=== PATIENT | female | born 1950 | race Two or more races ===

== ENCOUNTER 2021-09-23 02:55 | Emergency (ER) | payer OTHER ==
[~2021-09-23] VITALS: Ht 154.9 cm; Wt 99.8 kg
[~2021-09-23 02:55] MED LIST: AML5T PO; NOR10T PO
[2021-09-23 03:47] LABS: Basophils # (auto) 0.1 10 ^3/uL (0-0.2); Eosinophils # (auto) 0.4 10 ^3/uL (0-0.8); Eosinophils % (auto) 3.8 % (0.0-7.0); Hematocrit 44.7 % (36.0-46.0); Hemoglobin 15.5 g/dL (12.2-16.2); Lymphocytes # (auto) 3.7 10 ^3/uL (0.4-5.4); Lymphocytes % (auto) 33.4 % (10.0-50.0); Mean Corpuscular Hemoglobin 30.8 pg (28.0-32.0); Mean Corpuscular Hgb Conc. 34.7 g/dL (32.0-36.0); Mean Corpuscular Volume 88.5 fL (80.0-100.0); Monocytes # (auto) 0.6 10 ^3/uL (0-1.3); Monocytes % (auto) 5.6 % (0.0-12.0); Neutrophils # (auto) 6.2 10 ^3/uL (1.6-8.6); Neutrophils % (auto) 56.2 % (37.0-80.0); Nucleated Red Blood Cells % 0.1 %; Red Blood Cells 5.05 10^6/uL (4.0-5.20); Red Cell Distribution Width 13.3 % (11.8-14.3)
[2021-09-23 04:17] LABS: Alanine Aminotransferase 28 U/L (13-56); Albumin 3.3 g/dL (3.4-5.0); Anion Gap 6 (5-15); Aspartate Aminotransferase 20 U/L (15-37); BUN/Creatinine Ratio 13.8; Blood Urea Nitrogen 9 mg/dL (7-18); Calcium 8.9 mg/dL (8.5-10.1); Carbon Dioxide 21 mmol/L (21-32); Chloride 113 mmol/L (98-107); GFR African American 115 mL/min; GFR Non-African American 95 mL/min; Glucose 99 mg/dL (74-106); Potassium 4.4 mmol/L (3.5-5.1); Sodium 140 mmol/L (136-145)
[2021-09-23 04:19] LABS: Alkaline Phosphatase 87 U/L (45-117); Bilirubin, Total 0.2 mg/dL (0.2-1.0)
[2021-09-23] MEDS ORDERED: IBUPROFEN 600 MG TAB PO ONE (05:00)
[2021-09-23] MEDS ORDERED: diazePAM 5 MG TAB PO ONE (05:00)
[2021-09-23] MEDS ORDERED: HYDROcodone-ACET 10/325MG TAB PO ONE (05:00)
[2021-09-23] MEDS ORDERED: IBUP600T27 PO (05:32)
[2021-09-23] MEDS ORDERED: DIAZ5TAB PO (05:32)
[2021-09-23] MEDS ORDERED: HYDROmorphone HCL 2 MG/ML VL IM ONE (06:15)
[2021-09-23 07:36] VITALS: BP 123/72
== END 2021-09-23 05:27 | disposition home or self-care (01) ==
LOC: EDBD 02:55 → ER 02:55
DX: S16.1XXA Strain of muscle, fascia and tendon at neck level, initial encounter (principal); J45.909 Unspecified asthma, uncomplicated; E78.5 Hyperlipidemia, unspecified; I10 Essential (primary) hypertension; Z90.49 Acquired absence of other specified parts of digestive tract; Z90.710 Acquired absence of both cervix and uterus; Z86.73 Personal history of transient ischemic attack (TIA), and cerebral infarction without residual deficits; Z88.2 Allergy status to sulfonamides; Z88.6 Allergy status to analgesic agent; Z88.8 Allergy status to other drugs, medicaments and biological substances; X58.XXXA Exposure to other specified factors, initial encounter; Y93.89 Activity, other specified; Y92.89 Other specified places as the place of occurrence of the external cause; Y99.8 Other external cause status
CPT/HCPCS: 36415; 80053; 84484; 85025; 93005; 96372; 99285; J1170

== ENCOUNTER 2024-12-09 12:15 | Emergency (ER) | payer OTHER ==
[~2024-12-09] VITALS: Ht 162.6 cm; Wt 91.0 kg
[~2024-12-09 12:15] MED LIST changes: +DIAZ-681 PO; +IBUP-1454 PO
--- NOTE | 2024-12-09 13:39 | ED.PDOC ---
History of Present Illness HPI Comments 74-year-old female brought in by EMS presents with a chief complaint of chronic body pain. Patient has a speech disturbance from a previous CVA that she had per . of patient reports that patient has been having chronic body pain that she has yet to address with a doctor. Patient does not see a doctor due to her immobility issues per . Patient subsequently does not take any medications for any of her conditions. PMHx: CVA, HTN, Anxiety, Arthritis, Asthma, HLD PSHx: Cholecystectomy, Hysterectomy HPI: Poor Historian. REVIEW OF SYSTEMS: CONSTITUTIONAL: Denies acute: fever, diaphoresis, chills, HEAD: Denies acute: headache, photophobia Eyes: Denies acute: Double vision, vision loss, eye pain, eye discharge. EARS: Denies acute: tinnitus, hearing loss, ear discharge, ear pain, THROAT: Denies acute: sore throat, swelling, difficulty swallowing , pain with swallowing, change in voice. NECK: Denies acute: neck pain, neck swelling, stiff neck. HEART: Denies acute : chest pain, palpitations, LUNGS: Denies acute: SOB, wheezing, cough, hemoptysis ABDOMEN: Denies acute: , Nausea, Vomiting, diarrhea, melena , hematemesis, hematochezia SKIN: Denies acute: rash, redness, lesions, itchiness. EXTREMITIES: Denies acute: calf pain, numbness, tingling, weakness, denies pain in extremity. Neuro: Denies acute: focal neurological deficit, motor or sensory focal neurological deficit, tremors, seizure like activity, confusion, dizziness, change in mental status, loss of bowel or bladder function, cauda equina like symptoms. : Denies acute: dysuria, hematuria, flank pain, increase in urinary frequency. PSYCH: Denies acute: hallucination, suicidal ideation, homicidal ideation. FEMALE: Denies acute: abnormal vaginal bleeding, foul odor, unusual discharge. PHYSICAL EXAM: General: ---[id number]-ty-[id number]-----acute distress, awake and alert. Head: normocephalic, atraumatic. Neck: supple, trachea is midline, no swelling. Throat: Normal phonation. Eyes:, no erythema, no purulent discharge, no proptosis, no icterus. Heart: regular rate, regular rhythm, no significant murmur appreciated. Lungs: no apparent respiratory distress, Able to speak in full sentences. No wheezing, no rhonchi, no crackles. No stridors Clear to auscultation bilaterally. Abdomen: Generalized tender to palpation, non distended, soft, no guarding, no rebound, + bowel sounds. Obese Neuro: Awake, Alert, oriented to name, self, situation, follows commands GCS=15. Speech is impaired at baseline from a previous stroke Skin: no petechia, no purpura, no cyanosis, non-pale, not jaundice. Lower extremities: --no - Pitting edema no deformity, no focal swelling, no calf TTP. Makes eye contact. Face: no apparent facial droop. No nuchal rigidity, Kernig's sign, Brudzinski's sign, no meningeal signs. ED COURSE: Chief Complaint: Back Pain Time Seen by MD: 13:20 Primary Care Provider: UNK Reviewed Notes: Medications, Allergies Allergies: Coded Allergies: Sulfa Drugs (Verified Allergy, Intermediate, HIVES, FACIAL SWELLING, 01/31/11) Cefuroxime (Verified Allergy, Unknown, 07/11/14) Hydrochlorothiazide w/Triamterene (Verified Allergy, Unknown, 07/11/14) Nortriptyline (Verified Allergy, Unknown, 07/11/14) Omeprazole (Verified Allergy, Unknown, 07/11/14) Salmeterol (Verified Allergy, Unknown, 07/11/14) Vitamin D (Verified Allergy, Unknown, 07/11/14) Uncoded Allergies: CO-TRIMOXAZOLE (Allergy, Unknown, 07/11/14) Home Meds Active Scripts Ibuprofen (Ibuprofen) 600 Mg Tab, 600 MG PO Q8HPRN PRN, #20 MG 0 Refills Prov:CHILO HYLTON MD 09/23/21 Diazepam (Valium) 5 Mg Tab, 2 TAB PO BID, #20 TAB Prov:CHILO HYLTON MD 09/23/21 Reported Medications Amlodipine Besylate (NORVASC TABLET) 5 Mg Tb, 2.5 TAB PO DAILY, #30 TAB 5 Refills 07/11/14 Hydrocodone-Acetaminophen ([place] 10/325MG) 1 Tab Tb, 10-325 MG PO BIDP PRN, #60 MG 01/31/11 Information Source: Patient, Spouse Mode of Arrival: EMS Past Medical History PAST MEDICAL HISTORY: Anxiety, Arthritis, Asthma, CVA, High Lipids, HTN Surgical History: Cholecystectomy, Hysterectomy DRAFTER (CAD) ELECTRICAL History: No Pertinent DRAFTER (CAD) ELECTRICAL History Family History Family History: Unknown Social History Smoker: Non-Smoker Alcohol: Denies ETOH Use Drugs: Denies Drug Use Lives In: Home Was a procedure done? Was a procedure done?: No Differential Dx Considerations may include: As far as low back pain: DDX included but not limited to Cauda Equina syndrome, lumbar radiculopathy, arthritis, disk herniation, sciatica, muscle strain, e pidural abscess, transverse myelitis. Cord compression, spinal foraminal stenosis, spinal fractures, spondylosis, central canal stenosis, trauma, muscle sprain/strain, aneurysm/dissection, kidney stones, shingles, arthritis, [place], neoplasm. As far as abdominal pain: DDX include Diverticulitis, colitis, gastroenteritis, acute abdomen, SBO, enteritis, constipation, volvulus, appendicitis, Gallbladder disease, choledocolithiasis, ascending cholangitis, pancreatitis, intraAbdominal mass/neoplasm, hepatitis, UTI, pylonephritis, kidney stone, aneurysm, dissection, Inflammatory bowel disease, gastroparesis, ischemic bowel, X-Ray, Labs, Meds, VS Vital Signs Date Time Temp Pulse Resp B/P (MAP) Pulse Ox O2 Delivery O2 Flow Rate FiO2 12/09/24 23:40 97.5 73 16 130/83 (99) 94 97.5 12/09/24 22:00 83 14 129/78 (95) 9 12/09/24 20:00 83 12/09/24 19:28 98.3 83 16 123/98 (106) 95 98.3 12/09/24 19:28 83 16 95 Room Air* 0 21 12/09/24 18:52 97.8 84 20 142/89 (106) 96 97.8 12/09/24 18:07 98.4 87 20 143/71 (95) 93 98.4 12/09/24 12:34 98.4 92 18 168/82 (110) 96 98.4 Lab Test 12/09/24 14:30 12/09/24 13:38 Range/Units Troponin I High Sensitivity < 3 L < 3 L </=34 ng/L White Blood Count 11.6 H 4.4-10.8 10^3/uL Red Blood Count 5.46 H 4.0-5.20 10^6/uL Hemoglobin 16.2 12.2-16.2 g/dL Hematocrit 47.3 H 36.0-46.0 % Mean Corpuscular Volume 86.5 80.0-100.0 fL Mean Corpuscular Hemoglobin 29.7 28.0-32.0 pg Mean Corpuscular Hemoglobin Concent 34.3 32.0-36.0 g/dL Red Cell Distribution Width 13.7 11.8-14.3 % Platelet Count 269 140-450 10^3/uL Mean Platelet Volume 7.9 6.9-10.8 fL Neutrophils (%) (Auto) 64.1 37.0-80.0 % Lymphocytes (%) (Auto) 27.2 10.0-50.0 % Monocytes (%) (Auto) 5.7 0.0-12.0 % Eosinophils (%) (Auto) 2.6 0.0-7.0 % Basophils (%) (Auto) 0.4 0.0-2.0 % Neutrophils # (Auto) 7.5 1.6-8.6 10 ^3/uL Lymphocytes # (Auto) 3.2 0.4-5.4 10 ^3/uL Monocytes # (Auto) 0.7 0-1.3 10 ^3/uL Eosinophils # (Auto) 0.3 0-0.8 10 ^3/uL Basophils # (Auto) 0 0-0.2 10 ^3/uL Nucleated Red Blood Cells 0.1 % Sodium Level 144 136-145 mmol/L Potassium Level 3.6 3.5-5.1 mmol/L Chloride Level 111 H 98-107 mmol/L Carbon Dioxide Level 20 20-31 mmol/L Anion Gap 13 5-15 Blood Urea Nitrogen 8 L 9-23 mg/dL Creatinine 0.61 0.550-1.02 mg/dL Glomerular Filtration Rate Calc 93 >90 mL/min BUN/Creatinine Ratio 13.1 10.0-20.0 Serum Glucose 102 74-106 mg/dL Lactic Acid Level 1.7 0.4-2.0 mmol/L Calcium Level 9.7 8.7-10.4 mg/dL Total Bilirubin 0.6 0.2-1.0 mg/dL Aspartate Amino Transferase (AST) 20 13-40 U/L Alanine Aminotransferase (ALT) 19 7-40 U/L Alkaline Phosphatase 161 H 46-116 U/L Total Protein 7.4 5.7-8.2 g/dL Albumin 4.5 3.2-4.8 g/dL Lipase 33 12-53 U/L Current Medications Medications (Trade) Dose Ordered Sig/Mima Route Start Time Stop Time Status Last Admin Acetaminophen/ Hydrocodone Bitart ([place] 5/325MG Tab) 1 tab ONCE ONCE PO 12/09/24 16:30 12/09/24 16:31 DC 12/09/24 16:30 Sodium Chloride 1,000 ml @ 1,000 mls/hr Q1H ONCE IV 12/09/24 20:45 12/09/24 21:44 DC 12/09/24 21:02 Ondansetron HCl (Zofran) 4 mg ONCE ONCE IV 12/09/24 20:45 12/09/24 20:46 DC 12/09/24 21:01 PATIENT: JANKI JASMINECT: [id number]: [id number] : 1950 LOC: ER ROOM / BED: / AGE / SEX: 74 / F ADM STATUS: REG ER SERVICE 1326 ORDERING PHYSICIAN: NILSON HERNANDEZ DO PROCEDURE(s): CXRP - CHEST PORTABLE REASON: abd pain, weakness, back pain ORDER NUMBER(s): [id number], ACCESSION NUMBER(s): [id number] EXAM: XY CHEST PORTABLE HISTORY: abd pain, weakness, back pain COMPARISON: None TECHNIQUE: Portable upright AP view of the chest was performed. FINDINGS: No pneumothorax, consolidative infiltrates, or pulmonary edema. The heart is not enlarged. The aortic arch is calcific. There are postoperative changes of TAVR. IMPRESSION: 1. No acute intrathoracic process. 2. Atherosclerotic vascular disease and postoperative changes of TAVR. ATED BY: NAHEED PIÑA MD DICTATED DATE/TIME: 12/09/24 1428 SIGNED BY: NAHEED PIÑA MD SIGNED DATE/TIME: 12/09/248 PATIENT: QUINCY JASMINE ACCT: [id number] UNIT: [id number] : 1950 LOC: ER ROOM / BED: / AGE / SEX: 74 / F ADM STATUS: REG ER SERVICE 1326 ORDERING PHYSICIAN: NILSON HERNANDEZ DO PROCEDURE(s): ABPL - CT AB PEL WO CON-NO ORAL OR IV REASON: abd pain, weakness, back pain ORDER NUMBER(s): [id number], ACCESSION NUMBER(s): [id number] Indication: abd pain, weakness, back pain Technique: CT axial images of the abdomen and pelvis are obtained without contrast. Coronal and sagittal reformats were obtained. Radiation Dose Information: CTDI volume is 25.02 mGy. Dose-length product is 1438.72 mGy*cm Comparison: None FINDINGS: There is limited interpretation of the abdomen and pelvis without administration of intravenous contrast. The lung bases demonstrate atelectasis. Aortic valvular prosthesis. Adrenal glands, spleen unremarkable in shape. Fatty infiltration of the pancreas. Hepatic steatosis. Cholecystectomy. Bilateral renal peripelvic cysts. No hydronephrosis. Small hiatal hernia. Stomach partially distended. Small bowel loops are normal in caliber. Large volume stool in the rectum. Moderate volume stool in the colon. No secondary signs for appendicitis. Abdominal aortic atherosclerotic disease. Bladder is partially distended. No free pelvic fluid. No inguinal lymphadenopathy. Moderate thoracolumbar degenerative disc disease and facet hypertrophic changes. Partially calcified left mesenteric lesion measuring 2 cm which may represent sequela of previous infection/ infarction. IMPRESSION: 1. Moderate thoracolumbar degenerative disc disease. 2. Atherosclerotic disease. 3. Cholecystectomy. 4. Hepatic steatosis. ATED BY: MALIHA BLUE MD DICTATED DATE/TIME: 12/09/241437 SIGNED BY: MALIHA BLUE MD SIGNED DATE/TIME: 12/09/241437 Time of 1ST Reevaluation: 13:50 Reevaluation 1ST: Unchanged Time of 2ND Reevaluation: 17:57 (The case was discussed with the [facility] admitting team (HPI, physical exam, labs and diagnostic tests that were available at the time of disposition, ED course, treatment plan) on the phone. They agreed to transfer the patient to their service by ALS for further evaluation and treatment. Dr. Viveros Authorization number is--[id number]. Urinalysis still pending) Patient Education/Counseling: Diagnosis, Treatment Family Education/Counseling: Diagnosis, Treatment Comments [facility] physician states that the patient has history of CVA supposed to be on Plavix, hypertension, anemia, bed ridden, vertigo, this our TRIA, fibromyalgia, history of cholecystectomy and TAVR Patient presented with the above HPI.--multiple complaints----workup was initiated. patient was found with the above mentioned diagnosis. the following medications were ordered: please refer to order lists of meds and tests obtained by myself Dr. Hernandez. Patient ED course and VS have been stabilized. Patient has been reassessed in the ED and remained in a stable condition. Pertinent incidental findings were discussed with the patient and/or family. Patient/family voices understanding and is agreeable with plan. Patient has been observed in the ED adequate length of time to insure improvement/stability. Escalation of care considered: Consideration of escalation to observation or admission Patient was transfer to [facility] per insurance requirement for further evaluation treatment of her presentation. All the reports of any imaging studies that were ordered by myself were reviewed by myself. Departure 1 Departure Time of Disposition: 15:45 Impression: Primary Impression: Abdominal pain Additional Impression: Back pain Disposition: 02 SHORT TERM HOSPITAL Admit to: [facility] Condition: Guarded Discharged With: Self Critical Care Note Critical Care Time?: No Heart Score Heart Score: Heart Score Response (Comments) Value History N/A 0 EKG N/A 0 Age N/A 0 Risk Factors N/A 0 Troponin N/A 0 Total 0 I personally scribed for NILSON HERNANDEZ DO ([email or web address]) on 12/09/24 at 13:39. Electronically submitted by Jose Harrison ([email or web address]). I personally scribed for NILSON HERNANDEZ DO ([email or web address]) on 12/09/24 at 16:03. Electronically submitted by Jose Harrison ([email or web address]). NILSON HERNANDEZ DO Dec 09, 2024 13:39
[2024-12-09 13:54] LABS: Basophils # (auto) 0 10 ^3/uL (0-0.2); Basophils % (auto) 0.4 % (0.0-2.0); Eosinophils # (auto) 0.3 10 ^3/uL (0-0.8); Eosinophils % (auto) 2.6 % (0.0-7.0); Hematocrit 47.3 % (36.0-46.0); Hemoglobin 16.2 g/dL (12.2-16.2); Lymphocytes # (auto) 3.2 10 ^3/uL (0.4-5.4); Lymphocytes % (auto) 27.2 % (10.0-50.0); Mean Corpuscular Hemoglobin 29.7 pg (28.0-32.0); Mean Corpuscular Hgb Conc. 34.3 g/dL (32.0-36.0); Mean Corpuscular Volume 86.5 fL (80.0-100.0); Monocytes # (auto) 0.7 10 ^3/uL (0-1.3); Monocytes % (auto) 5.7 % (0.0-12.0); Neutrophils # (auto) 7.5 10 ^3/uL (1.6-8.6); Neutrophils % (auto) 64.1 % (37.0-80.0); Nucleated Red Blood Cells % 0.1 %; Platelet Count (auto) 269 10^3/uL (140-450); Red Blood Cells 5.46 10^6/uL (4.0-5.20); Red Cell Distribution Width 13.7 % (11.8-14.3); White Blood Cell 11.6 10^3/uL (4.4-10.8)
[2024-12-09 14:07] LABS: Alanine Aminotransferase 19 U/L (7-40); Albumin 4.5 g/dL (3.2-4.8); Anion Gap 13 (5-15); Aspartate Aminotransferase 20 U/L (13-40); BUN/Creatinine Ratio 13.1 (10.0-20.0); Bilirubin, Total 0.6 mg/dL (0.2-1.0); Calcium 9.7 mg/dL (8.7-10.4); Carbon Dioxide 20 mmol/L (20-31); Glucose 102 mg/dL (74-106); Potassium 3.6 mmol/L (3.5-5.1); Sodium 144 mmol/L (136-145); Total Protein 7.4 g/dL (5.7-8.2)
[2024-12-09 14:09] LABS: Alkaline Phosphatase 161 U/L (46-116); Blood Urea Nitrogen 8 mg/dL (9-23); Chloride 111 mmol/L (98-107)
[2024-12-09 14:25] LABS: Lipase 33 U/L (12-53)
--- NOTE | 2024-12-09 14:31 | DVH ---
EXAM: XY CHEST PORTABLE HISTORY: abd pain, weakness, back pain COMPARISON: None TECHNIQUE: Portable upright AP view of the chest was performed. FINDINGS: No pneumothorax, consolidative infiltrates, or pulmonary edema. The heart is not enlarged. The aortic arch is calcific. There are postoperative changes of TAVR. IMPRESSION: 1. No acute intrathoracic process. 2. Atherosclerotic vascular disease and postoperative changes of TAVR.
--- NOTE | 2024-12-09 14:40 | DVH ---
Indication: abd pain, weakness, back pain Technique: CT axial images of the abdomen and pelvis are obtained without contrast. Coronal and sagit eloy reformats were obtained. Radiation Dose Information: CTDI volume is 25.02 mGy. Dose-length product is 1438.72 mGy*cm Comparison: None FINDINGS: There is limited interpretation of the abdomen and pelvis without administration of intravenous contr ast. The lung bases demonstrate atelectasis. Aortic valvular prosthesis. Adrenal glands, spleen unremarkable in shape. Fatty infiltration of the pancreas. Hepatic steatosis. Cholecystectomy. Bilateral renal peripelvic cysts. No hydronephrosis. Small hiatal hernia. Stomach partially distended. Small bowel loops are normal in caliber. Large volume stool in the rectum. Moderate volume stool in the colon. No secondary signs for appendic itis. Abdominal aortic atherosclerotic disease. Bladder is partially distended. No free pelvic fluid. No in guinal lymphadenopathy. Moderate thoracolumbar degenerative disc disease and facet hypertrophic changes. Partially calcified left mesenteric lesion measuring 2 cm which may represent sequela of previous inf ection/ infarction. IMPRESSION: 1. Moderate thoracolumbar degenerative disc disease. 2. Atherosclerotic disease. 3. Cholecystectomy. 4. Hepatic steatosis.
[2024-12-09] MEDS: HYDROcodone-ACET 5/325MG TAB PO ONE (16:30)
[2024-12-09 19:28] VITALS: PULSE 83; RESP 16; O2SAT 95
[2024-12-09] MEDS: ONDANSETRON HCL 4 MG/2 ML VIAL IV ONE (21:01)
[2024-12-09] MEDS: SODIUM CHLORIDE 0.9% 1,000 ML IV ONE (21:02)
[2024-12-09 23:40] VITALS: BP 130/83; PULSE 73; RESP 16; TEMP 97.5; O2SAT 94
== END 2024-12-09 23:25 | disposition short-term general hospital (02) ==
LOC: ER 12:15 → EDBD 12:15 → ER 23:25
DX: R10.84 Generalized abdominal pain (principal); M54.9 Dorsalgia, unspecified; F41.9 Anxiety disorder, unspecified; M19.90 Unspecified osteoarthritis, unspecified site; J45.909 Unspecified asthma, uncomplicated; E78.5 Hyperlipidemia, unspecified; I10 Essential (primary) hypertension; Z90.49 Acquired absence of other specified parts of digestive tract; Z90.710 Acquired absence of both cervix and uterus; Z88.1 Allergy status to other antibiotic agents; Z88.2 Allergy status to sulfonamides; Z86.73 Personal history of transient ischemic attack (TIA), and cerebral infarction without residual deficits; Z79.899 Other long term (current) drug therapy
CPT/HCPCS: 36415; 71045; 74176; 80053; 83605; 83690; 84484; 85025; 96361; 96374; 99285; J2405; J7030

== ENCOUNTER 2025-06-22 14:49 | Inpatient (IN) | payer OTHER ==
[~2025-06-22] VITALS: Ht 162.6 cm; Wt 94.5 kg
--- NOTE | 2025-06-22 14:58 | ED.PDOC ---
History of Present Illness HPI Comments 74-year-old female BIBA with prior medical history of CVA x5 years ago and a chief complaint of shortness a breath. EMS report on the patient having had shortness a breath for one week associated with progressively worsening cough and wheezing which prompted the patient called 911 today. Patient is nonambu latory and was satting at an 80% room air for which prompted EMS to give the patient a DuoNeb treatment. The patient is currently satting at 94% on 2 L O2. Denies any other symptoms at this time. Denies chills, fever, N/V/D, CP. No other associated symptoms, modifiers, recent injuries or sick contacts present at this time. Time Seen by MD: 14:20 Reviewed Notes: Nurses Notes, Arch Support Maker Notes, Medications, Allergies Allergies: Coded Allergies: Sulfa Drugs (Verified Allergy, Intermediate, HIVES, FACIAL SWELLING, 01/31/11) Cefuroxime (Verified Allergy, Unknown, 07/11/14) Hydrochlorothiazide w/Triamterene (Verified Allergy, Unknown, 07/11/14) Nortriptyline (Verified Allergy, Unknown, 07/11/14) Omeprazole (Verified Allergy, Unknown, 07/11/14) Salmeterol (Verified Allergy, Unknown, 07/11/14) Vitamin D (Verified Allergy, Unknown, 07/11/14) Uncoded Allergies: CO-TRIMOXAZOLE (Allergy, Unknown, 07/11/14) Home Meds Active Scripts Ibuprofen (Ibuprofen) 600 Mg Tab, 600 MG PO Q8HPRN PRN, #20 MG 0 Refills Prov:CHILO HYLTON MD 09/23/21 Diazepam (Valium) 5 Mg Tab, 2 TAB PO BID, #20 TAB Prov:CHILO HYLTON MD 09/23/21 Reported Medications Amlodipine Besylate (NORVASC TABLET) 5 Mg Tb, 2.5 TAB PO DAILY, #30 TAB 5 Refills 07/11/14 Hydrocodone-Acetaminophen ([place] 10/325MG) 1 Tab Tb, 10-325 MG PO BIDP PRN, #60 MG 01/31/11 Information Source: Patient, Emergency Med Personnel Mode of Arrival: EMS Severity: Moderate Timing: Days Duration: Since onset, Days Prehospital treatment: Oxygen (2 L of O2 and a DuoNeb treatment) Past Medical History PAST MEDICAL HISTORY: CVA (Five years ago) Past Medical History (Other): Currently bed-bound Surgical History: Denies all surgeries HISTORICAL INTERPRETER History: No Pertinent HISTORICAL INTERPRETER History Family History Family History: Reviewed,noncontributory to illness, Unknown Social History Smoker: Non-Smoker Alcohol: Denies ETOH Use Drugs: Denies Drug Use Lives In: Home Constitutional: denies: chills, diaphoresis, fatigue, fever, malaise, sweats, weakness, others EENTM: denies: blurred vision, double vision, ear bleeding, ear discharge, ear drainage, ear pain, ear ringing, eye pain, eye redness, hearing loss, mouth pain, mouth swelling, nasal discharge, nose bleeding, nose congestion, nose pain, photophobia, tearing, throat pain, throat swelling, voice changes, others Respiratory: reports: cough, SOB at rest, shortness of breath, wheezing; denies: hemoptysis, orthopnea, SOB with excertion, stridor, others Cardiovascular: denies: chest pain, dizzy spells, diaphoresis, Dyspnea on exertion, edema, irregular heart beat, left arm pain, lightheadedness, palpitations, PND, syncope, others Gastrointestinal: denies: abdomen distended, abdominal pain, blood streaked bowels, constipated, diarrhea, dysphagia, difficulty swallowing, hematemesis, melena, nausea, poor appetite, poor fluid intake, rectal bleeding, rectal pain, vomiting, others Genitourinary: denies: abnormal vagina bleeding, burning, dyspareunia, dysuria, flank pain, frequency, hematuria, incontinence, pain, , vagina discharge, urgency, others Neurological: denies: dizziness, fainting, headache, left sided numbness, left sided weakness, numbness, paresthesia, pre-existing deficit, right sided numbness, right sided weakness, seizure, speech problems, tingling, tremors, weakness, others Musculoskeletal: denies: back pain, gout, joint pain, joint swelling, muscle pain, muscle stiffness, neck pain, others Integumetry: denies: bruises, change in color, change in hair/nails, dryness, laceration, lesions, lumps, rash, wounds, others Allergic/Immunocompromised: denies: Difficulty Healing, Frequent Infections, Hives, Itching, others Hematologic/Lymphatic: denies: anemia, blood clots, easy bleeding, easy bruising, swollen glands, others Endocrine: denies: excessive hunger, excessive sweating, excessive thirst, excessive urination, flushing, intolerance to cold, intolerance to heat, unexplained weight gain, unexplained weight loss, others Psychiatric: denies: anxiety, bipolar disorder, depression, hopeless, panic disorder, schizophrenia, sleepless, suicidal, others All Other Systems: Reviewed and Negative Physical Exam General Appearance: Moderate Distress, Normal HEENT: Normal ENT Inspection, Pharynx Normal, TMs Normal Neck: Full Range of Motion, Non-Tender, Normal, Normal Inspection Respiratory: Chest Non-Tender, No Accessory Muscle Use, Rhonchi Cardiovascular: No Edema, No JVD, No Murmur, No Gallop, Normal Peripheral Pulses, Regular Rate/Rhythm Breast Exam: Deferred Gastrointestinal: No Organomegaly, Non Tender, No Pulsatile Mass, Normal Bowel Sounds, Soft Genitalia: Deferred Pelvic: Deferred Rectal: Deferred Extremities: No calf tenderness, Normal capillary refill, Normal inspection, Normal range of motion, Non-tender, No pedal edema Musculoskeletal : Apperance: Normal Neurologic: Alert, artificial stone applicator II-XII nml as Tested, No Motor Deficits, Normal Affect, Normal Mood, No Sensory Deficits Cerebellar Function: NOT DONE Reflexes: NOT DONE Skin: Dry, Normal Color, Warm Peripheral Pulses: 3+ Radial (R), 3+ Radial (L) Lymphatic: No Adenopathy Was a procedure done? Was a procedure done?: No Differential Dx Considerations may include: CHF Electrolyte imbalance X-Ray, Labs, Meds, VS Vital Signs Date Time Temp Pulse Resp B/P (MAP) Pulse Ox O2 Delivery O2 Flow Rate FiO2 06/22/25 15:44 26 95 Nasal Cannula* 2 28 06/22/25 15:40 102 24 98 Nasal Cannula* 2 28 06/22/25 15:40 98.5 102 24 165/85 (111) 94 98.5 06/22/25 14:49 97.7 88 22 148/75 94 97.7 Lab Test 06/22/25 16:23 06/22/25 15:32 Range/Units Troponin I High Sensitivity Pending 4 </=34 ng/L White Blood Count 9.7 4.4-10.8 10^3/uL Red Blood Count 5.22 H 4.0-5.20 10^6/uL Hemoglobin 15.7 12.2-16.2 g/dL Hematocrit 45.6 36.0-46.0 % Mean Corpuscular Volume 87.5 80.0-100.0 fL Mean Corpuscular Hemoglobin 30.1 28.0-32.0 pg Mean Corpuscular Hemoglobin Concent 34.4 32.0-36.0 g/dL Red Cell Distribution Width 13.4 11.8-14.3 % Platelet Count 246 140-450 10^3/uL Mean Platelet Volume 8.1 6.9-10.8 fL Neutrophils (%) (Auto) 52.9 37.0-80.0 % Lymphocytes (%) (Auto) 35.9 10.0-50.0 % Monocytes (%) (Auto) 8.1 0.0-12.0 % Eosinophils (%) (Auto) 2.5 0.0-7.0 % Basophils (%) (Auto) 0.6 0.0-2.0 % Neutrophils # (Auto) 5.1 1.6-8.6 10 ^3/uL Lymphocytes # (Auto) 3.5 0.4-5.4 10 ^3/uL Monocytes # (Auto) 0.8 0-1.3 10 ^3/uL Eosinophils # (Auto) 0.2 0-0.8 10 ^3/uL Basophils # (Auto) 0.1 0-0.2 10 ^3/uL Nucleated Red Blood Cells 0.1 % Sodium Level 142 136-145 mmol/L Potassium Level 3.1 L 3.5-5.1 mmol/L Chloride Level 108 H 98-107 mmol/L Carbon Dioxide Level 22 20-31 mmol/L Anion Gap 12 5-15 Blood Urea Nitrogen 6 L 9-23 mg/dL Creatinine 0.62 0.550-1.02 mg/dL Glomerular Filtration Rate Calc 92 >90 mL/min BUN/Creatinine Ratio 9.7 L 10.0-20.0 Serum Glucose 115 H 74-106 mg/dL Calcium Level 8.9 8.7-10.4 mg/dL Current Medications Medications (Trade) Dose Ordered Sig/Mima Route Start Time Stop Time Status Last Admin Methylprednisolone Sodium Succinate (Solu Medrol) 125 mg ONCE ONCE IV 06/22/25 15:30 06/22/25 15:31 DC 06/22/25 15:54 Albuterol (Ventolin Medneb) 5 mg ONCE ONCE NEB 06/22/25 15:30 06/22/25 15:31 DC 06/22/25 15:42 Ipratropium [place] (Atrovent Medneb) 0.5 mg ONCE ONCE NEB 06/22/25 15:30 06/22/25 15:31 DC 06/22/25 15:42 Patient alert. Placed on oxygen. Increased respiratory rate. Answering questions. Potassium is low. Was given potassium. Possible pneumonitis. Was given steroid. Was given breathing treatment. Chest x-ray reviewed does show CHF. Was given Lasix. Unstable for transfer. Explained to the patient. Continue monitoring. [place] approved inpatient admission [id number]. Time of 1ST Reevaluation: 14:53 Reevaluation 1ST: Unchanged Patient Education/Counseling: Diagnosis, Treatment, Prognosis Family Education/Counseling: No Family Present SEPSIS Sepsis Screen Physician Orders Chest Portable (06/22/25 15:19) Urinalysis (06/22/25 15:19) Troponin-I Hs (06/22/25 16:19) Troponin-I Hs (06/22/25 18:19) Potassium Chl 20meq/100ml (06/22/25 16:30) Ceftriaxone 1gm/50ml (Rocephin) (06/22/25 16:30) Azithromycin 500mg/250ml (Zithromax 500m (06/22/25 16:30) Vital Signs Date Time Temp Pulse Resp B/P (MAP) Pulse Ox O2 Delivery O2 Flow Rate FiO2 06/22/25 15:44 26 95 Nasal Cannula* 2 28 06/22/25 15:40 102 24 98 Nasal Cannula* 2 28 06/22/25 15:40 98.5 102 24 165/85 (111) 94 98.5 06/22/25 14:49 97.7 88 22 148/75 94 97.7 Laboratory Tests Test 06/22/25 15:32 White Blood Count 9.7 10^3/uL (4.4-10.8) Medications Medications Dose Ordered Sig/Mima Route Start Time Stop Time Status Last Admin Dose Admin Albuterol 5 mg ONCE ONCE NEB 06/22/25 15:30 06/22/25 15:31 DC 06/22/25 15:42 Ipratropium [place] 0.5 mg ONCE ONCE NEB 06/22/25 15:30 06/22/25 15:31 DC 06/22/25 15:42 Methylprednisolone Sodium Succinate 125 mg ONCE ONCE IV 06/22/25 15:30 06/22/25 15:31 DC 06/22/25 15:54 Departure 1 Departure Time of Disposition: 16:17 Impression: Primary Impression: Acute respiratory failure Qualified Codes: J96.01 - Acute respiratory failure with hypoxia Additional Impressions: Pneumonitis CHF (congestive heart failure) Qualified Codes: I50.43 - Acute on chronic combined systolic (congestive) and diastolic (congestive) heart failure Disposition: ADMITTED INPATIENT Admit to: Med Surg Condition: Guarded Critical Care Note Critical Care Time?: Yes (90 min-critical care time only) Stability Stability form required: No Heart Score Heart Score: Heart Score Response (Comments) Value History Slightly Suspicious 0 EKG Normal 0 Age >65 2 Risk Factors >3 or Hx ASHD 2 Troponin Normal limit 0 Total 4 I personally scribed for MOHINDER BLANTON MD ([email or web address]) on 06/22/25 at 14:58. Electronically submitted by Abraham Moreno ([email or web address]). I personally scribed for MOHINDER BLANTON MD ([email or web address]) on 06/22/25 at 14:58. Electronically submitted by Abraham Moreno ([email or web address]). MOHINDER BLANTON MD Jun 22, 2025 14:58
[2025-06-22 15:40] VITALS: PULSE 102; RESP 24; O2SAT 98
[2025-06-22] MEDS: ALBUTEROL SULF 2.5 MG/0.5ML(0.5%) NEB SOLN NEB ONE (15:42)
[2025-06-22] MEDS: IPRATROPIUM BROM 0.5 MG/2.5ML INH SOL NEB ONE (15:42)
--- NOTE | 2025-06-22 15:52 | DVH ---
CHEST RADIOGRAPH INDICATION: sob TECHNIQUE: Single frontal view of the chest was obtained COMPARISON: XY CHEST PORTABLE on DOS: 12/09/24, XR CHEST 1 VIEW on DOS: 02/13/24 FINDINGS: Lines and Tubes: None Lungs: No focal consolidation. Diffuse interstitial prominence. Hazy opacification of the right hemithorax which may be from overlying structures. Pleura: No effusion. No pneumothorax. Cardiomediastinal contours: Heart size is within normal limits [id number] atherosclerotic calcification and uncoiling of the aorta. Cardiac valvular replacement is noted. Bones: No acute osseous abnormality. IMPRESSION: Diffuse interstitial Prominence which are be from pulmonary vascular congestion senescent changes. No focal consolidation.
[2025-06-22 15:53] LABS: Hematocrit 45.6 % (36.0-46.0); Hemoglobin 15.7 g/dL (12.2-16.2); Mean Corpuscular Hemoglobin 30.1 pg (28.0-32.0); Mean Corpuscular Volume 87.5 fL (80.0-100.0); Nucleated Red Blood Cells % 0.1 %
[2025-06-22] MEDS: methylPREDNISolone SOD SUCC 125 MG/2 ML VL IV ONE (15:54)
[2025-06-22 16:06] LABS: Sodium 142 mmol/L (136-145)
[2025-06-22 16:07] LABS: Anion Gap 12 (5-15); Carbon Dioxide 22 mmol/L (20-31)
[2025-06-22 16:08] LABS: Calcium 8.9 mg/dL (8.7-10.4)
[2025-06-22 16:13] LABS: Chloride 108 mmol/L (98-107); Glucose 115 mg/dL (74-106); Potassium 3.1 mmol/L (3.5-5.1)
[2025-06-22 16:14] LABS: BUN/Creatinine Ratio 9.7 (10.0-20.0); Blood Urea Nitrogen 6 mg/dL (9-23)
[2025-06-22] MEDS: FUROSEMIDE 40 MG/4 ML VIAL IV ONE (18:40)
[2025-06-22] MEDS: POTASSIUM CHL 20MEQ/100ML 100 ML IV ONE (18:41)
[2025-06-22 20:12] LABS: Urine Protein, UAD Negative (Negative)
[2025-06-22] MEDS: AZITHROMYCIN 500MG/250ML 250 ML IV ONE (22:20)
--- NOTE | 2025-06-22 23:28 | ECG ---
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
[2025-06-22] MEDS ORDERED: ONDANSETRON HCL 4 MG/2 ML VIAL IV PRN (23:30)
[2025-06-23] VITALS (16 sets, daily range): BP systolic 97–148; BP diastolic 8–91; PULSE 68–150; RESP 16–22; TEMP 97.9–98.7; O2SAT 93–99
[2025-06-23] MEDS: ACETAMINOPHEN 325 MG TAB PO SCH (00:16)
[2025-06-23] MEDS: HYDROcodone-ACET 5/325MG TAB PO PRN (03:25)
[2025-06-23] MEDS: POTASSIUM EFFERVESENT TAB 25 MEQ PO ONE (03:42)
--- NOTE | 2025-06-23 05:11 | DVHHPRES ---
History of Present Illness Resident Creating Document: HENNA TINAJERO RESIDENT History of Present Illness Patient is a 74-year-old female with past medical history of CVA 5 years ago, hypertension, who came to the ED with chief complaints of shortness of breath, and dry cough since 1 week. Patient has shortness of breath has been progressively getting worse. Patient denies any fever chills, nausea, vomiting, chest pain. Patient does report having sick contacts as the also had flu-like symptoms. He also complains of lower back pain which is 10/10 in intensity. PMHx: CVA, hypertension PSHx: cholecystectomy, hysterectomy Family history: reviewed, noncontributory Social history: smoking, drinking, drug use Home medication: amlodipine, diazepam, Allergic history: sulfa drugs, ceftriaxone, nortriptyline, omeprazole, sa lmeterol, vitamin-D Patient seen at bedside. Patient is currently on 2 L oxygen, complains of shortness of breath and cough, generalized weakness. she also complains of lower back pain and stool and urinary incontinence. Patient's speech is slurred. Review of Systems Constitutional: No: Fever, Chills, Sweats, Weakness, Malaise, Other Eyes: No: Pain, Vision change, Conjunctivae inflammation, Eyelid inflammation, Other, Redness ENT: No: Ear pain, Ear discharge, Nose pain, Nose discharge, Nose congestion, Mouth pain, Mouth swelling, Throat pain, Throat swelling, Other Respiratory: Cough, Dry, Shortness of breath Cardiovascular: No: Chest Pain, Palpitations, Orthopnea, Paroxysmal Noc. Dyspnea, Edema, Lt Headedness, Other Gastrointestinal: No: Nausea, Vomiting, Abdominal Pain, Diarrhea, Constipation, Melena, Hematochezia, Other Genitourinary: No Dysuria, No Frequency, No Incontinence, No Hematuria, No Retention, No Other Musculoskeletal: No: other, neck pain, shoulder pain, arm pain, back pain, hand pain, leg pain, foot pain Skin: No: Rash, Lesions, Jaundice, Bruising, Other Neurological: No: Weakness, Numbness, Incoordination, Change in speech, Confusion, Seizures, Other Allergies: Coded Allergies: Sulfa Drugs (Verified Allergy, Intermediate, HIVES, FACIAL SWELLING, 01/31/11) Cefuroxime (Verified Allergy, Unknown, 07/11/14) Hydrochlorothiazide/Triamterene (Verified Allergy, Unknown, 07/11/14) Nortriptyline (Verified Allergy, Unknown, 07/11/14) Omeprazole (Verified Allergy, Unknown, 07/11/14) Salmeterol (Verified Allergy, Unknown, 07/11/14) Vitamin D (Verified Allergy, Unknown, 07/11/14) Uncoded Allergies: CO-TRIMOXAZOLE (Allergy, Unknown, 07/11/14) Medications Current Medications Medications Dose Ordered Sig/Mima Route Start Time Stop Time Status Last Admin Dose Admin Acetaminophen/ Hydrocodone Bitart 1 tab Q4HP PRN PO 06/22/25 23:30 06/23/25 03:25 1 TAB Ondansetron HCl 4 mg Q4HP PRN IV 06/22/25 23:30 Enoxaparin Sodium 40 mg DAILY SC 06/23/25 10:00 Acetaminophen 650 mg Q6HR PO 06/23/25 00:00 06/23/25 00:16 650 MG Albuterol 2.5 mg Q4HWA [facility] 06/23/25 06:00 Ipratropium [place] 0.5 mg Q4HWA [facility] 06/23/25 06:00 Exam Vital Signs Vital Signs Date Time Temp Pulse Resp B/P (MAP) Pulse Ox O2 Delivery O2 Flow Rate FiO2 06/23/25 04:08 98.3 88 20 148/89 95 98.3 06/23/25 03:28 Nasal Cannula* 2 28 Exam General: Patient alert and oriented in person, place and time. Patient following commands. HEENT: Normocephalic, atraumatic, moist mucous membranes Respiratory/pulmonary: Rhonchi heard on auscultation on right side Cardiovascular: Normal heart sounds S1 and S2 with no associated murmurs Abdomen: Abdomen nondistended, there is no pain to palpation in any of the abdominal quadrants, no palpable masses. Extremities: There is no peripheral edema present at the lower extremities. Peripheral Pulses: 3+ Radial (R). 3+ Radial (L). 3+ Dorsalis pedis (R). 3+ Dorsalis pedis(L) Skin: No rashes or pruritus, there is no sacral edema present at this time. Neurological: right-sided weakness, slurred speech Labs/Xrays Labs Test 06/23/25 03:58 06/22/25 19:45 06/22/25 18:33 06/22/25 15:32 Range/Units Urine Color Light-yellow Yellow Urine Clarity Clear Clear Urine pH 5.5 5.0-9.0 Urine Specific [place] 1.012 1.001-1.035 Urine Protein Negative Negative Urine Ketones Trace Negative Urine Blood Negative Negative /uL Urine Nitrite Negative Negative Urine Bilirubin Negative Negative Urine Urobilinogen Normal Negative mg/dL Urine Leukocyte Esterase Negative Negative /uL Urine RBC 1 0 - 4 /hpf Urine Microscopic WBC 1 0-5 /HPF Urine Squamous Epithelial Cells Few <5 /hpf Urine Bacteria None seen None Seen /hpf Urine Mucus Few None Seen Urine Glucose Normal Normal mg/dL Troponin I High Sensitivity 6 </=34 ng/L White Blood Count 9.7 4.4-10.8 10^3/uL Red Blood Count 5.22 H 4.0-5.20 10^6/uL Hemoglobin 15.7 12.2-16.2 g/dL Hematocrit 45.6 36.0-46.0 % Mean Corpuscular Volume 87.5 80.0-100.0 fL Mean Corpuscular Hemoglobin 30.1 28.0-32.0 pg Mean Corpuscular Hemoglobin Concent 34.4 32.0-36.0 g/dL Red Cell Distribution Width 13.4 11.8-14.3 % Platelet Count 246 140-450 10^3/uL Mean Platelet Volume 8.1 6.9-10.8 fL Neutrophils (%) (Auto) 52.9 37.0-80.0 % Lymphocytes (%) (Auto) 35.9 10.0-50.0 % Monocytes (%) (Auto) 8.1 0.0-12.0 % Eosinophils (%) (Auto) 2.5 0.0-7.0 % Basophils (%) (Auto) 0.6 0.0-2.0 % Neutrophils # (Auto) 5.1 1.6-8.6 10 ^3/uL Lymphocytes # (Auto) 3.5 0.4-5.4 10 ^3/uL Monocytes # (Auto) 0.8 0-1.3 10 ^3/uL Eosinophils # (Auto) 0.2 0-0.8 10 ^3/uL Basophils # (Auto) 0.1 0-0.2 10 ^3/uL Nucleated Red Blood Cells 0.1 % Sodium Level 142 136-145 mmol/L Potassium Level 3.1 L 3.5-5.1 mmol/L Chloride Level 108 H 98-107 mmol/L Carbon Dioxide Level 22 20-31 mmol/L Anion Gap 12 5-15 Blood Urea Nitrogen 6 L 9-23 mg/dL Creatinine 0.62 0.550-1.02 mg/dL Glomerular Filtration Rate Calc 92 >90 mL/min BUN/Creatinine Ratio 9.7 L 10.0-20.0 Serum Glucose 115 H 74-106 mg/dL Calcium Level 8.9 8.7-10.4 mg/dL SEPSIS Sepsis Screen Date sepsis recognized/suspect: Jun 22, 2025 Time Sepsis recognized/suspect: 1939 Recent Procedure: No On Antibiotic Therapy: No Respiratory Rate >20: No Heart Rate >90: Yes Temp<36 C (96.8 F) or >38.3 C: No SBP <90 or MAP <65 mmHG: No New Acute Mental Status Change: No Is the patient on CPAP, BIPAP,: No Physician Orders Admit (06/22/25 23:25) Hydrocodone-Acet 5/325mg Tab ([place] 5/32 (06/22/25 23:30) Ondansetron Hcl (Zofran) (06/22/25 23:30) Enoxaparin Sodium (Lovenox) (06/23/25 10:00) Complete Blood Count (06/23/25 04:00) Comprehensive Metabolic Panel (06/23/25 04:00) Cardiac Diet-2gna,Lofat,Lochol (06/23/25 Breakfast) Condition: Serious (06/22/25 23:25) Acetaminophen Tablet (Tylenol Tablet) (06/23/25 00:00) Bedrest With Bathroom Privileg (06/22/25:25) Oxygen By Nasal Cannula (06/22/25:25) Stat Ekg For Chest Pain (06/22/25:25) Notify Md Of Changes From Base (06/22/25:) Composite Worker For 24 Hours (06/22/25 23:25) Emergency Dysrhythmia Protocol (06/22/25 23:25) Rhythm Strips Once Every Shift (06/22/25 23:25) Covid19 Antigen Kaylee (06/23/25 ) Rapid Influenza A&B (06/23/25 03:31) Magnesium (06/23/25 03:31) Mrsa Screen (06/23/25 03:31) Albuterol Medneb (Ventolin Medneb) (06/23/25 06:00) Ipratropium Medneb (Atrovent Medneb) (06/23/25 06:00) B-Type Natriuretic Peptide (06/23/25 04:55) Azithromycin Tablet (Zithromax Tablet) (06/23/25 10:00) Ceftriaxone 2gm/50ml (Rocephin 2gm/50ml) (06/23/25 10:00) Vital Signs Date Time Temp Pulse Resp B/P (MAP) Pulse Ox O2 Delivery O2 Flow Rate FiO2 06/23/25 04:08 98.3 88 20 148/89 95 98.3 06/23/25 03:31 98.3 88 20 148/89 (108) 95 98.3 06/23/25 03:28 88 20 95 Nasal Cannula* 2 28 06/23/25 03:00 98.3 87 20 148/89 (108) 94 98.3 06/23/25 02:00 86 15 128/90 (103) 94 06/23/25 01:30 97.8 06/23/25 01:00 86 21 115/72 (86) 95 06/23/25 00:16 98.0 06/23/25 00:00 87 16 127/77 (94) 94 06/22/25 23:20 91 06/22/25 22:00 92 23 128/88 (101) 94 Medications Medications Dose Ordered Sig/Mima Route Start Time Stop Time Status Last Admin Dose Admin Acetaminophen 650 mg Q6HR PO 06/23/25 00:00 06/23/25 00:16 650 MG Acetaminophen/ Hydrocodone Bitart 1 tab Q4HP PRN PO 06/22/25 23:30 06/23/25 03:25 1 TAB Potassium Bicarbonate 25 meq ONCE ONCE PO 06/23/25 03:45 06/23/25 03:46 DC 06/23/25 03:42 25 MEQ Assessment/Plan Assessment/Plan Acute hypoxic respiratory failure due to pneumonia Pneumonia due to Gram-positive/Gram-negative bacteria Questionable heart failure - chest x-ray showed Diffuse interstitial Prominence which are be from pulmonary vascular congestion senescent changes. No focal consolidation. 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 Flores , patient and nurse Plan discussed with: Patient My Orders Orders - HENNA TINAJERO RESIDENT Procedure Category Date Status Time Admit ADMIT 06/22/25 Transmitted 23:25 Hydrocodone-Acet PHA 06/22/25 In Process 5/325mg Tab ([place] 23:30 Ondansetron Hcl PHA 06/22/25 In Process (Zofran) 23:30 Enoxaparin Sodium PHA 06/23/25 In Process (Lovenox) 10:00 Complete Blood Count LAB 06/23/25 Logged 04:00 Comprehensive LAB 06/23/25 Logged Metabolic Panel 04:00 Cardiac DIET 06/23/25 Transmitted Diet-2gna,Lofat,Lochol Breakfast Condition: Serious [place] 06/22/25 In Process 23:25 Acetaminophen Tablet PHA 06/23/25 In Process (Tylenol Tablet) 00:00 Bedrest With Bathroom [facility] 06/22/25 In Process Privileg 23:25 Oxygen By Nasal RT 06/22/25 Transmitted Cannula 23:25 Stat Ekg For Chest [facility] 06/22/25 In Process Pain 23:25 Notify Md Of Changes [facility] 06/22/25 In Process From Base 23:25 Composite Worker For [facility] 06/22/25 In Process 24 Hours 23:25 Emergency Dysrhythmia [facility] 06/22/25 In Process Protocol 23:25 Rhythm Strips Once [facility] 06/22/25 In Process Every Shift 23:25 Covid19 Antigen Kaylee LAB 06/23/25 In Process Rapid Influenza A&B LAB 06/23/25 In Process 03:31 Magnesium LAB 06/23/25 Logged 03:31 Mrsa Screen ISABEL 06/23/25 In Process 03:31 Albuterol Medneb PHA 06/23/25 In Process (Ventolin Medneb) 06:00 Ipratropium Medneb PHA 06/23/25 In Process (Atrovent Medneb) 06:00 B-Type Natriuretic LAB 06/23/25 Logged Peptide 04:55 Azithromycin Tablet PHA 06/23/25 Logged (Zithromax Tablet) 10:00 Ceftriaxone 2gm/50ml PHA 06/23/25 Logged (Rocephin 2gm/50ml) 10:00 Visit Coding STANDARD RES Billing Provider: NIKKIE FLORES MD Date of Service if different f: Jun 22, 2025 Common Visit Codes: 16625-[id number] INP/OBS CARE (HIGH) Secondary Visit Codes: [id number]-[id number] CARE PLAN 30 MINUTES HENNA TINAJERO RESIDENT Jun 23, 2025 05:11
[2025-06-23 05:29] LABS: COVID19 ANTIGEN SOFIA FIA NEGATIVE (NEGATIVE)
[2025-06-23] MEDS: IPRATROPIUM BROM 0.5 MG/2.5ML INH SOL NEB SCH (06:50)
[2025-06-23] MEDS: ALBUTEROL SULF 2.5 MG/0.5ML(0.5%) NEB SOLN NEB SCH (06:51)
[2025-06-23] MEDS: ENOXAPARIN SOD 40 MG/0.4 ML SYRINGE SC SCH (09:11)
[2025-06-23 09:31] LABS: Hematocrit 44.5 % (36.0-46.0); Hemoglobin 15.2 g/dL (12.2-16.2); Mean Corpuscular Hemoglobin 29.7 pg (28.0-32.0); Mean Corpuscular Volume 87.0 fL (80.0-100.0); Nucleated Red Blood Cells % 0.3 %
[2025-06-23 09:38] LABS: Alanine Aminotransferase 22 U/L (7-40); Albumin 4.4 g/dL (3.2-4.8); Anion Gap 10 (5-15); BUN/Creatinine Ratio 14.8 (10.0-20.0); Bilirubin, Total 0.4 mg/dL (0.2-1.0); Blood Urea Nitrogen 12 mg/dL (9-23); Calcium 9.6 mg/dL (8.7-10.4); Carbon Dioxide 23 mmol/L (20-31); Chloride 107 mmol/L (98-107); Potassium 4.0 mmol/L (3.5-5.1); Sodium 140 mmol/L (136-145); Total Protein 7.4 g/dL (5.7-8.2)
[2025-06-23 09:59] LABS: Alkaline Phosphatase 170 U/L (46-116); Glucose 137 mg/dL (74-106)
[2025-06-23] MEDS ORDERED: AZITHROMYCIN 250 MG TAB PO SCH (10:00)
--- NOTE | 2025-06-23 10:56 | DVHPN2 ---
Subjective 74-year-old female who was admitted for chest pain and shortness of breaths for 1 week associated with a cough Apparently she lives with her and he had flu-like symptoms also This morning she was complaining of shortness of breaths and chest pain and her heart rate was in the 140s, EKG shows AFib with RVR Apparently the patient takes Eliquis at home but she does not know what other medication she is on I called the phone number for the which is listed in the chart but there was no answer or the number is not correct Changes from previous H/P or p: Changes Eyes: No Pain, No Vision change, No Conjunctivae inflammation, No Eyelid inflammation, No Other, No Redness ENT: No Ear pain, No Ear discharge, No Nose pain, No Nose discharge, No Nose congestion, No Mouth pain, No Mouth swelling, No Throat pain, No Throat swelling, No Other Cardiovascular: No Chest Pain, No Palpitations, No Orthopnea, No Paroxysmal Noc. Dyspnea, No Edema, No Lt Headedness, No Other Respiratory: Cough, Dry, Shortness of breath Gastrointestinal: No Nausea, No Vomiting, No Abdominal Pain, No Diarrhea, No Constipation, No Melena, No Hematochezia, No Other Genitourinary: No Dysuria, No Frequency, No Incontinence, No Hematuria, No Retention, No Other Musculoskeletal: No other, No neck pain, No shoulder pain, No arm pain, No back pain, No hand pain, No leg pain, No foot pain Skin: No Rash, No Lesions, No Jaundice, No Bruising, No Other Objective Vitals Vital Signs Date Time Temp Pulse Resp B/P (MAP) Pulse Ox O2 Delivery O2 Flow Rate FiO2 06/23/25 08:58 98.7 88 22 132/79 (96) 96 98.7 06/23/25 03:28 Nasal Cannula* 2 28 Intake/Output Intake and Output 06/23/25 07:00 Intake Total 850 ml Balance 850 ml Intake Oral 450 ml IV Total 400 ml General Appearance: Alert, Oriented X3, moderate distress Lungs: Other (Bilateral rhonchi) Cardiovascular: Other (Irregularly irregular tachycardic heart rate 140) Abdomen: Normal bowel sounds, Soft, No tenderness Extremities: No edema Medications Current Medications Medications Dose Ordered Sig/Mima Route Start Time Stop Time Status Last Admin Dose Admin Acetaminophen/ Hydrocodone Bitart 1 tab Q4HP PRN PO 06/22/25 23:30 06/23/25 03:25 1 TAB Ondansetron HCl 4 mg Q4HP PRN IV 06/22/25 23:30 Enoxaparin Sodium 40 mg DAILY SC 06/23/25 10:00 06/23/25 09:11 40 MG Acetaminophen 650 mg Q6HR PO 06/23/25 00:00 06/23/25 05:46 650 MG Albuterol 2.5 mg Q4HWA [facility] 06/23/25 06:00 Ipratropium [place] 0.5 mg Q4HWA [facility] 06/23/25 06:00 Azithromycin 500 mg DAILY PO 06/23/25 10:00 Hold Ceftriaxone Sodium/Dextrose 50 ml @ 50 mls/hr DAILY IV 06/23/25 10:00 06/23/25 09:12 50 MLS/HR Laboratory Results Laboratory Tests 06/23/25 08:31 Chemistry Test 06/22/25 15:32 06/23/25 08:31 Calcium Level 8.9 mg/dL (8.7-10.4) 9.6 mg/dL (8.7-10.4) Albumin 4.4 g/dL (3.2-4.8) Magnesium Level 2.2 mg/dL (1.6-2.6) Total Protein 7.4 g/dL (5.7-8.2) Cardiac Markers Test 06/23/25 08:31 B-Type Natriuretic Peptide 91.84 pg/mL (0-100) LFT Test 06/23/25 08:31 Alanine Aminotransferase (ALT) 22 U/L (7-40) Alkaline Phosphatase 170 U/L (46-116) H Aspartate Amino Transferase (AST) 21 U/L (13-40) Total Bilirubin 0.4 mg/dL (0.2-1.0) Urinalysis Test 06/22/25 19:45 Urine Color Light-yellow (Yellow) Urine Clarity Clear (Clear) Urine pH 5.5 (5.0-9.0) Urine Specific [place] 1.012 (1.001-1.035) Urine Protein Negative (Negative) Urine Ketones Trace (Negative) Urine Blood Negative /uL (Negative) Urine Nitrite Negative (Negative) Urine Bilirubin Negative (Negative) Urine Urobilinogen Normal mg/dL (Negative) Urine Leukocyte Esterase Negative /uL (Negative) Urine RBC 1 /hpf (0 - 4) Urine Microscopic WBC 1 /HPF (0-5) Urine Squamous Epithelial Cells Few /hpf (<5) Urine Bacteria None seen /hpf (None Seen) Urine Mucus Few (None Seen) Urine Glucose Normal mg/dL (Normal) Assessment/Plan Assessment/Plan Acute hypoxic respiratory failure Atrial fibrillation with rapid ventricular response Possible congestive heart failure Possible underlying pneumonia Hypertension Old CVA Plan EKG Cardiology consult Troponin Echocardiogram Give metoprolol 25 mg twice a day Lovenox Get the home medications Called the but no answer IV antibiotics Rocephin and Zithromax Oxygen as needed Med neb treatments as needed Not stable for transfer Plan discussed with: Patient My Orders Orders - NANCY CRISTOBAL MD Procedure Category Date Status Time Transfer Orders XFER 06/23/25 Transmitted 10:42 Metoprolol Tartrate PHA 06/23/25 Logged Tablet (Lopressor Ta 11:00 Date of Service: Jun 23, 2025 Billing Provider: NANCY CRISTOBAL MD Common Visit Codes: [id number] INP/OBS CARE(HIGH) NANCY CRISTOBAL MD Jun 23, 2025 10:56
[2025-06-23] MEDS: METOPROLOL TARTRATE 25 MG TAB PO ONE (12:19)
[2025-06-23] MEDS: METOPROLOL TARTRATE 1MG/1ML-5ML VIAL IV ONE (12:22)
[2025-06-23] MEDS: ENOXAPARIN SOD 40 MG/0.4 ML SYRINGE SC ONE (12:30)
[2025-06-23] MEDS: AMIODARONE BOLUS KIT 100 ML IV ONE ×2 (12:47)
[2025-06-23] MEDS: SODIUM CHLORIDE 0.9% 250 ML IV ONE (13:00)
--- NOTE | 2025-06-23 13:54 | MEDREC ---
[facility] ASP Intervention Section I FOR[facility] ASP Intervention: Review courses of therapy (DUE TO PROLONG QTc > 500 PLEASE CONSIDER SWITCHING AZITHROMYCIN TO DOXYCYCLINE ) ANABELLA OLIVO PHARMACIST Jun 23, 2025 13:54
[2025-06-23] MEDS ORDERED: DOXYCYCLINE 100MG/100ML 100 ML IV SCH (14:00)
--- NOTE | 2025-06-23 14:43 | DVH ---
CHEST RADIOGRAPH REASON FOR EXAM: Shortness of breath COMPARISON: XY CHEST PORTABLE on DOS: 06/22/25, XY CHEST PORTABLE on DOS: 12/09/24, XR CHEST 1 VIEW on DOS: 02/13/24, XR CHEST 2 VIEWS on DOS: 11/13/20 TECHNIQUE: One view of the chest is provided FINDINGS: The cardiomediastinal silhouette is within normal limits for technique. There is aortic atherosclerosis. The patient is status post TAVR. There is new focal airspace disease in the lingula. There is no significant pleural effusion. No acute bony abnormality is identified. IMPRESSION: New focal airspace disease in the lingula that may represent atelectasis although pneumonia is not ruled out.
--- NOTE | 2025-06-23 15:41 | DVHINCON2 ---
Date Seen: Jun 23, [address] Cristina Reason for Consultation atrial fibrillation with rvr History of Present Illness Patient is a 74-year-old female who came in to the hospital with a chief complaint of worsening shortness of breath and cough. Patient has a history of stroke about 5-6 years ago and has difficulty speaking, speech is not clear history obtained from at bedside who reveals she was having worsening shortness of breath with the last 1 week for which brought to the hospital. Patient denied any chest pain. On arrival patient was seen to be slightly hypotensive, heart rate 80-100, normal white cell count. Initial 12 lead ECG showed sinus rhythm with a probable old inferior infarct, no acute ST or T-wave changes. Cardiology were consulted today because the patient went into atrial fibrillation with RVR. Past medical history: CVA 5-6 years ago, hypertension, chronic back pain Surgical history: Cholecystectomy, hysterectomy Social history patient is mostly bed-bound, no smoking alcohol or drug use Home medications: Patient is a transplant reported since she has not been able to go to the physician because of lack of gurney transport, they do not have medications but from reconciled medications patient has been prescribed lisinopril 20, clonidine 0.1, hydralazine 25 t.i.d. Past Medical History As per HPI Past Surgical History As per HPI Family History: FH: kidney disease Family history: Cardiovascular disease Family history: Diabetes mellitus Family history: Hypertension Heart disease Family History Not significant Social History As per HPI Allergies: Coded Allergies: Sulfa Drugs (Verified Allergy, Intermediate, HIVES, FACIAL SWELLING, 01/31/11) Cefuroxime (Verified Allergy, Unknown, 07/11/14) Hydrochlorothiazide/Triamterene (Verified Allergy, Unknown, 07/11/14) Nortriptyline (Verified Allergy, Unknown, 07/11/14) Omeprazole (Verified Allergy, Unknown, 07/11/14) Salmeterol (Verified Allergy, Unknown, 07/11/14) Vitamin D (Verified Allergy, Unknown, 07/11/14) Uncoded Allergies: CO-TRIMOXAZOLE (Allergy, Unknown, 07/11/14) Home Meds Active Scripts Ibuprofen (Ibuprofen) 600 Mg Tab, 600 MG PO Q8HPRN PRN, #20 MG 0 Refills Prov:CHILO HYLTON MD 09/23/21 Diazepam (Valium) 5 Mg Tab, 2 TAB PO BID, #20 TAB Prov:CHILO HYLTON MD 09/23/21 Reported Medications Amlodipine Besylate (NORVASC TABLET) 5 Mg Tb, 2.5 TAB PO DAILY, #30 TAB 5 Refills 07/11/14 Hydrocodone-Acetaminophen ([place] 10/325MG) 1 Tab Tb, 10-325 MG PO BIDP PRN, #60 MG 01/31/11 Current Medications Current Medications Medications (Trade) Dose Ordered Sig/Mima Route PRN Reason Start Time Stop Time Status Last Admin Acetaminophen/ Hydrocodone Bitart ([place] 5/325MG Tab) 1 tab Q4HP PRN PO MODERATE PAIN (4-6 PAIN SCALE) 06/22/25 23:30 06/23/25 03:25 Ondansetron HCl (Zofran) 4 mg Q4HP PRN IV NAUSEA / VOMITING 06/22/25 23:30 Enoxaparin Sodium (Lovenox) 40 mg DAILY SC 06/23/25 10:00 06/23/25 10:55 DC 06/23/25 09:11 Acetaminophen (Tylenol Tablet) 650 mg Q6HR PO 06/23/25 00:00 06/23/25 05:46 Albuterol (Ventolin Medneb) 2.5 mg Q4HWA [facility] 06/23/25 06:00 Ipratropium [place] (Atrovent Medneb) 0.5 mg Q4HWA [facility] 06/23/25 06:00 06/23/25 11:24 Azithromycin (Zithromax Tablet) 500 mg DAILY PO 06/23/25 10:00 06/23/25 14:00 DC Ceftriaxone Sodium/Dextrose 50 ml @ 50 mls/hr DAILY IV 06/23/25 10:00 06/23/25 09:12 Enoxaparin Sodium (Lovenox) 80 mg Q12HR SC 06/23/25 22:00 Metoprolol Tartrate (Lopressor Tablet) 25 mg BID PO 06/23/25 22:00 Amiodarone HCl 250 ml @ 16.66 mls/ hr Q15H1M IV 06/23/25 18:45 Doxycycline Hyclate 100 ml @ 50 mls/hr Q12H IV 06/23/25 14:00 Cancel Doxycycline Monohydrate (Vibramycin Tablet) 100 mg BID PO 06/23/25 22:00 Review of Systems Patient seen and examined at the bedside Speech slightly comprehensible, slight right-sided weakness, which is normal as per the Denied any chest pain Saturating more than 95% on 2 L oxygen Was seen to be in atrial fibrillation with a RVR following which 5 mg metoprolol IV was given, started on amiodarone bolus and drip Vital Signs Vital Signs Date Time Temp Pulse Resp B/P (MAP) Pulse Ox O2 Delivery O2 Flow Rate FiO2 06/23/25 12:30 98.7 150 18 108/8 (41) 97 98.7 06/23/25 11:28 Nasal Cannula* 3 32 Physical Exam Skin - Patients skin is warm and dry. HEENT - normocephalic, atraumatic, moist mucous membranes, no scleral icterus, no conjunctival pallor. Neck - full ROM, no LAD, no JVD Pulmonary - B/L mostly clear breath sounds without any overt rales cardiovascular - irregularly irregular S1,S2 heard. peripheral pulses normal radial 2+, pedal 2+. No extremity edema GI - soft, nontender abdomen. no hepatospleenomegaly. Bowel sounds normoactive Neurological - Patient is A/O X 3 . Right upper extremity strength 4/5, left upper extremity strength 5/5, speech defect because of history of stroke, no sensory deficiets. Labs/Diagnostic Data Labs Test 06/23/25 13:00 06/23/25 08:31 06/23/25 03:58 06/22/25 19:45 Range/Units Lactic Acid Level 1.5 0.4-2.0 mmol/L White Blood Count 9.5 4.4-10.8 10^3/uL Red Blood Count 5.11 4.0-5.20 10^6/uL Hemoglobin 15.2 12.2-16.2 g/dL Hematocrit 44.5 36.0-46.0 % Mean Corpuscular Volume 87.0 80.0-100.0 fL Mean Corpuscular Hemoglobin 29.7 28.0-32.0 pg Mean Corpuscular Hemoglobin Concent 34.1 32.0-36.0 g/dL Red Cell Distribution Width 13.6 11.8-14.3 % Platelet Count 305 140-450 10^3/uL Mean Platelet Volume 8.3 6.9-10.8 fL Neutrophils (%) (Auto) 73.0 37.0-80.0 % Lymphocytes (%) (Auto) 22.1 10.0-50.0 % Monocytes (%) (Auto) 4.7 0.0-12.0 % Eosinophils (%) (Auto) 0.0 0.0-7.0 % Basophils (%) (Auto) 0.2 0.0-2.0 % Neutrophils # (Auto) 7.0 1.6-8.6 10 ^3/uL Lymphocytes # (Auto) 2.1 0.4-5.4 10 ^3/uL Monocytes # (Auto) 0.4 0-1.3 10 ^3/uL Eosinophils # (Auto) 0 0-0.8 10 ^3/uL Basophils # (Auto) 0 0-0.2 10 ^3/uL Nucleated Red Blood Cells 0.3 % Sodium Level 140 136-145 mmol/L Potassium Level 4.0 3.5-5.1 mmol/L Chloride Level 107 98-107 mmol/L Carbon Dioxide Level 23 20-31 mmol/L Anion Gap 10 5-15 Blood Urea Nitrogen 12 9-23 mg/dL Creatinine 0.81 # 0.550-1.02 mg/dL Glomerular Filtration Rate Calc 75 >90 mL/min BUN/Creatinine Ratio 14.8 10.0-20.0 Serum Glucose 137 H 74-106 mg/dL Calcium Level 9.6 8.7-10.4 mg/dL Magnesium Level 2.2 1.6-2.6 mg/dL Total Bilirubin 0.4 0.2-1.0 mg/dL Aspartate Amino Transferase (AST) 21 13-40 U/L Alanine Aminotransferase (ALT) 22 7-40 U/L Alkaline Phosphatase 170 H 46-116 U/L Troponin I High Sensitivity 3 L </=34 ng/L B-Type Natriuretic Peptide 91.84 0-100 pg/mL Total Protein 7.4 5.7-8.2 g/dL Albumin 4.4 3.2-4.8 g/dL Thyroid Stimulating Hormone (TSH) 1.19 0.55-4.78 uIU/mL Influenza Type A Antigen Negative Negative Influenza Type B Antigen Negative Negative SARS-CoV-2 Antigen (Rapid) Negative NEGATIVE Urine Color Light-yellow Yellow Urine Clarity Clear Clear Urine pH 5.5 5.0-9.0 Urine Specific [place] 1.012 1.001-1.035 Urine Protein Negative Negative Urine Ketones Trace Negative Urine Blood Negative Negative /uL Urine Nitrite Negative Negative Urine Bilirubin Negative Negative Urine Urobilinogen Normal Negative mg/dL Urine Leukocyte Esterase Negative Negative /uL Urine RBC 1 0 - 4 /hpf Urine Microscopic WBC 1 0-5 /HPF Urine Squamous Epithelial Cells Few <5 /hpf Urine Bacteria None seen None Seen /hpf Urine Mucus Few None Seen Urine Glucose Normal Normal mg/dL Microbiology Date/Time Source Procedure Growth Status 06/23/25 03:58 Nose MRSA Screen - Final Complete Assessment Atrial fibrillation with a RVR New onset atrial fibrillation Acute hypoxic respiratory failure likely due to pneumonia h/o CVA Hypertensive heart disease Plan/Recommendation - started on amiodarone for pharmacological cardioversion since new onset atrial fibrillation - beta blockers for rate control - anticoagulation with a therapeutic Lovenox - Echocardiogram pending - depending on the echo, if normal patient may benefit from electrical cardioversion later during this admission if she does not convert with amiodarone Goals of care discussed with the patient and the . Plan discussed with Plan discussed with: Patient, Spouse, Other (RN) NYHA Physical activity limitations: Class2(Slight)fatigue,sob Date of Service: Jun 23, 2025 Billing Provider: JOHN PAUL PATEL MD Cardiology Common Codes: [id number] INP/OBS CARE (High) ANNAMARIA CANAS RESIDENT Jun 23, 2025 15:41
--- NOTE | 2025-06-23 18:11 | DVHINCON2 ---
Date Seen: Jun 23, [address] Cristina Reason for Consultation Atrial fibrillation with RVR History of Present Illness This is a 74-year-old female with a PMH of CVA 5-6 years ago, hypertension, chronic back pain who presented to the ED with a complaint of worsening shortness of breath and cough. Patient has a history of stroke about 5-6 years ago and has difficulty speaking, speech is not clear history obtained from at bedside who reveals she was having worsening shortness of breath with the last 1 week for which brought to the hospital. Patient denied any chest pain. On arrival patient was seen to be slightly hypotensive, heart rate 80-100, normal white cell count. Initial 12 lead ECG showed sinus rhythm with a probable old inferior infarct, no acute ST or T-wave changes. TROP 3. Cardiology was consulted today because the patient went into atrial fibrillation with RVR. Past Medical History As per HPI Past Surgical History As per HPI Family History: FH: kidney disease Family history: Cardiovascular disease Family history: Diabetes mellitus Family history: Hypertension Heart disease Allergies: Coded Allergies: Sulfa Drugs (Verified Allergy, Intermediate, HIVES, FACIAL SWELLING, 01/31/11) Cefuroxime (Verified Allergy, Unknown, 07/11/14) Hydrochlorothiazide/Triamterene (Verified Allergy, Unknown, 07/11/14) Nortriptyline (Verified Allergy, Unknown, 07/11/14) Omeprazole (Verified Allergy, Unknown, 07/11/14) Salmeterol (Verified Allergy, Unknown, 07/11/14) Vitamin D (Verified Allergy, Unknown, 07/11/14) Uncoded Allergies: CO-TRIMOXAZOLE (Allergy, Unknown, 07/11/14) Home Meds Active Scripts Ibuprofen (Ibuprofen) 600 Mg Tab, 600 MG PO Q8HPRN PRN, #20 MG 0 Refills Prov:CHILO HYLTON MD 09/23/21 Diazepam (Valium) 5 Mg Tab, 2 TAB PO BID, #20 TAB Prov:CHILO HYLTON MD 09/23/21 Reported Medications Amlodipine Besylate (NORVASC TABLET) 5 Mg Tb, 2.5 TAB PO DAILY, #30 TAB 5 Refills 07/11/14 Hydrocodone-Acetaminophen ([place] 10/325MG) 1 Tab Tb, 10-325 MG PO BIDP PRN, #60 MG 01/31/11 Current Medications Current Medications Medications (Trade) Dose Ordered Sig/Mima Route PRN Reason Start Time Stop Time Status Last Admin Acetaminophen/ Hydrocodone Bitart ([place] 5/325MG Tab) 1 tab Q4HP PRN PO MODERATE PAIN (4-6 PAIN SCALE) 06/22/25 23:30 06/23/25 03:25 Ondansetron HCl (Zofran) 4 mg Q4HP PRN IV NAUSEA / VOMITING 06/22/25 23:30 Enoxaparin Sodium (Lovenox) 40 mg DAILY SC 06/23/25 10:00 06/23/25 10:55 DC 06/23/25 09:11 Acetaminophen (Tylenol Tablet) 650 mg Q6HR PO 06/23/25 00:00 06/23/25 05:46 Albuterol (Ventolin Medneb) 2.5 mg Q4HWA [facility] 06/23/25 06:00 Ipratropium [place] (Atrovent Medneb) 0.5 mg Q4HWA [facility] 06/23/25 06:00 06/23/25 11:24 Azithromycin (Zithromax Tablet) 500 mg DAILY PO 06/23/25 10:00 06/23/25 14:00 DC Ceftriaxone Sodium/Dextrose 50 ml @ 50 mls/hr DAILY IV 06/23/25 10:00 06/23/25 09:12 Enoxaparin Sodium (Lovenox) 80 mg Q12HR SC 06/23/25 22:00 Metoprolol Tartrate (Lopressor Tablet) 25 mg BID PO 06/23/25 22:00 Amiodarone HCl 250 ml @ 16.66 mls/ hr Q15H1M IV 06/23/25 18:45 Doxycycline Hyclate 100 ml @ 50 mls/hr Q12H IV 06/23/25 14:00 Cancel Doxycycline Monohydrate (Vibramycin Tablet) 100 mg BID PO 06/23/25 22:00 Review of Systems Patient seen and examined at the bedside Speech slightly comprehensible, slight right-sided weakness, which is normal as per the Denied any chest pain Saturating more than 95% on 2 L oxygen Was seen to be in atrial fibrillation with a RVR following which 5 mg metoprolol IV was given, started on amiodarone bolus and drip Vital Signs Vital Signs Date Time Temp Pulse Resp B/P (MAP) Pulse Ox O2 Delivery O2 Flow Rate FiO2 06/23/25 12:30 98.7 150 18 108/8 (41) 97 98.7 06/23/25 11:28 Nasal Cannula* 3 32 Physical Exam GENERAL: Alert and oriented x 3. No acute distress. EYES: PERRL, EOMI. Anicteric. HENT: Moist mucous membranes. LUNGS: Clear to auscultation bilaterally. CARDIOVASCULAR: Irregular rate and rhythm. ABDOMEN: Soft, nontender and nondistended. EXTREMITIES: No edema. NEUROLOGIC: No focal neurological deficits. Right upper extremity strength 4/5, left upper extremity strength 5/5, speech defect because of history of stroke, no sensory deficits. SKIN: Warm, dry. Labs/Diagnostic Data Labs Test 06/23/25 13:00 06/23/25 08:31 06/23/25 03:58 06/22/25 19:45 Range/Units Lactic Acid Level 1.5 0.4-2.0 mmol/L White Blood Count 9.5 4.4-10.8 10^3/uL Red Blood Count 5.11 4.0-5.20 10^6/uL Hemoglobin 15.2 12.2-16.2 g/dL Hematocrit 44.5 36.0-46.0 % Mean Corpuscular Volume 87.0 80.0-100.0 fL Mean Corpuscular Hemoglobin 29.7 28.0-32.0 pg Mean Corpuscular Hemoglobin Concent 34.1 32.0-36.0 g/dL Red Cell Distribution Width 13.6 11.8-14.3 % Platelet Count 305 140-450 10^3/uL Mean Platelet Volume 8.3 6.9-10.8 fL Neutrophils (%) (Auto) 73.0 37.0-80.0 % Lymphocytes (%) (Auto) 22.1 10.0-50.0 % Monocytes (%) (Auto) 4.7 0.0-12.0 % Eosinophils (%) (Auto) 0.0 0.0-7.0 % Basophils (%) (Auto) 0.2 0.0-2.0 % Neutrophils # (Auto) 7.0 1.6-8.6 10 ^3/uL Lymphocytes # (Auto) 2.1 0.4-5.4 10 ^3/uL Monocytes # (Auto) 0.4 0-1.3 10 ^3/uL Eosinophils # (Auto) 0 0-0.8 10 ^3/uL Basophils # (Auto) 0 0-0.2 10 ^3/uL Nucleated Red Blood Cells 0.3 % Sodium Level 140 136-145 mmol/L Potassium Level 4.0 3.5-5.1 mmol/L Chloride Level 107 98-107 mmol/L Carbon Dioxide Level 23 20-31 mmol/L Anion Gap 10 5-15 Blood Urea Nitrogen 12 9-23 mg/dL Creatinine 0.81 # 0.550-1.02 mg/dL Glomerular Filtration Rate Calc 75 >90 mL/min BUN/Creatinine Ratio 14.8 10.0-20.0 Serum Glucose 137 H 74-106 mg/dL Calcium Level 9.6 8.7-10.4 mg/dL Magnesium Level 2.2 1.6-2.6 mg/dL Total Bilirubin 0.4 0.2-1.0 mg/dL Aspartate Amino Transferase (AST) 21 13-40 U/L Alanine Aminotransferase (ALT) 22 7-40 U/L Alkaline Phosphatase 170 H 46-116 U/L Troponin I High Sensitivity 3 L </=34 ng/L B-Type Natriuretic Peptide 91.84 0-100 pg/mL Total Protein 7.4 5.7-8.2 g/dL Albumin 4.4 3.2-4.8 g/dL Thyroid Stimulating Hormone (TSH) 1.19 0.55-4.78 uIU/mL Influenza Type A Antigen Negative Negative Influenza Type B Antigen Negative Negative SARS-CoV-2 Antigen (Rapid) Negative NEGATIVE Urine Color Light-yellow Yellow Urine Clarity Clear Clear Urine pH 5.5 5.0-9.0 Urine Specific [place] 1.012 1.001-1.035 Urine Protein Negative Negative Urine Ketones Trace Negative Urine Blood Negative Negative /uL Urine Nitrite Negative Negative Urine Bilirubin Negative Negative Urine Urobilinogen Normal Negative mg/dL Urine Leukocyte Esterase Negative Negative /uL Urine RBC 1 0 - 4 /hpf Urine Microscopic WBC 1 0-5 /HPF Urine Squamous Epithelial Cells Few <5 /hpf Urine Bacteria None seen None Seen /hpf Urine Mucus Few None Seen Urine Glucose Normal Normal mg/dL Microbiology Date/Time Source Procedure Growth Status 06/23/25 03:58 Nose MRSA Screen - Final Complete Assessment Atrial fibrillation with RVR. New onset atrial fibrillation. Acute hypoxic respiratory failure likely due to pneumonia. History of CVA. Hypertensive heart disease. Plan/Recommendation I agree with your ongoing assessment and care of plan. Patient has been seen by Zenon Zuleta, Resident on my behalf, we have discussed the plan with the patient. Started on amiodarone for pharmacological cardioversion since new onset atrial fibrillation. Beta blockers for rate control. Anticoagulation with a therapeutic Lovenox. Echocardiogram pending. Depending on the echo, if normal patient may benefit from electrical cardioversion later during this admission if she does not convert with amiodarone. Additional plan as per the hospital course. Plan discussed with: Patient NYHA Physical activity limitations: Class2(Slight)fatigue,sob Date of Service: Jun 23, 2025 Billing Provider: JOHN PAUL FIERRO MD Cardiology Common Codes: [id number] INP/OBS CARE (High) Cardiology Consultation Codes: [id number] CONSULT <45MIN JOHN PAUL FIERRO MD Jun 23, 2025 15:59
[2025-06-23] MEDS: AMIODARONE HCL 200 MG TAB PO SCH (22:13)
[2025-06-23] MEDS: DOXYCYCLINE 100 MG TAB/CAP PO SCH (22:13)
[2025-06-23] MEDS: METOPROLOL TARTRATE 25 MG TAB PO SCH (22:13)
[2025-06-23] MEDS: ENOXAPARIN SOD 80 MG/0.8ML SYRINGE SC SCH (22:18)
[2025-06-24] VITALS (17 sets, daily range): BP systolic 108–126; BP diastolic 60–80; PULSE 55–75; RESP 16–18; TEMP 97–98.4; O2SAT 76–99
[2025-06-24 06:38] LABS: Hematocrit 43.7 % (36.0-46.0); Hemoglobin 14.5 g/dL (12.2-16.2); Mean Corpuscular Hemoglobin 29.3 pg (28.0-32.0); Mean Corpuscular Volume 88.0 fL (80.0-100.0); Nucleated Red Blood Cells % 0.1 %
[2025-06-24 07:00] LABS: Alanine Aminotransferase 22 U/L (7-40); Albumin 4.0 g/dL (3.2-4.8); Anion Gap 9 (5-15); BUN/Creatinine Ratio 21.2 (10.0-20.0); Blood Urea Nitrogen 18 mg/dL (9-23); Calcium 8.8 mg/dL (8.7-10.4); Carbon Dioxide 26 mmol/L (20-31); Glucose 81 mg/dL (74-106); Magnesium 2.4 mg/dL (1.6-2.6); Potassium 3.8 mmol/L (3.5-5.1); Sodium 144 mmol/L (136-145); Total Protein 6.8 g/dL (5.7-8.2)
[2025-06-24 07:01] LABS: Bilirubin, Total 0.4 mg/dL (0.2-1.0)
[2025-06-24 07:09] LABS: Alkaline Phosphatase 148 U/L (46-116); Chloride 109 mmol/L (98-107); Cholesterol 201 mg/dL (< 200); HDL Cholesterol 26 mg/dL (40-59); Triglycerides 308 mg/dL (< 150)
--- NOTE | 2025-06-24 11:44 | DVHPN2 ---
Consult Progress Note Date Seen: Jun 24, 2025 Subjective Other Systems: Denies any cardiac symptoms. No overnight cardiac events reported Objective vital signs Vital Sign Date Time Temp Pulse Resp B/P (MAP) Pulse Ox O2 Delivery O2 Flow Rate FiO2 06/24/25 11:09 68 114/60 06/24/25 09:17 16 97 06/24/25 09:11 Nasal Cannula* 2 28 06/24/25 09:00 97.6 97.6 Total Intake and Output 06/23/25 06/23/25 06/24/25 15:00 23:00 07:00 Intake Total 0 ml 300 ml Balance 0 ml 300 ml medications Current Medications Medications Dose Ordered Sig/Mima Route Start Time Stop Time Status Last Admin Dose Admin Acetaminophen/ Hydrocodone Bitart 1 tab Q4HP PRN PO 06/22/25 23:30 06/23/25 22:13 1 TAB Ondansetron HCl 4 mg Q4HP PRN IV 06/22/25 23:30 Acetaminophen 650 mg Q6HR PO 06/23/25 00:00 06/24/25 06:02 650 MG Albuterol 2.5 mg Q4HWA [facility] 06/23/25 06:00 06/24/25 09:11 2.5 MG Ipratropium [place] 0.5 mg Q4HWA [facility] 06/23/25 06:00 06/24/25 09:11 0.5 MG Ceftriaxone Sodium/Dextrose 50 ml @ 50 mls/hr DAILY IV 06/23/25 10:00 06/24/25 11:02 50 MLS/HR Enoxaparin Sodium 80 mg Q12HR SC 06/23/25 22:00 06/24/25 11:07 80 MG Metoprolol Tartrate 25 mg BID PO 06/23/25 22:00 06/24/25 11:09 25 MG Doxycycline Hyclate 100 ml @ 50 mls/hr Q12H IV 06/23/25 14:00 Cancel Doxycycline Monohydrate 100 mg BID PO 06/23/25 22:00 06/24/25 11:09 100 MG Amiodarone HCl 200 mg Q12HR PO 06/23/25 22:00 06/24/25 11:09 200 MG Examination: LUNGS:Abnormal (Coarse right sided), CVS:Normal (NSR), NEURO:Abnormal (Alert but limited speech) laboratory and microbiology Laboratory Tests 06/24/25 05:13 Test 06/24/25 05:13 Range/Units Serum Glucose 81 74-106 mg/dL Problem List/Assessment/Plan Problem List/Assessment/Plan Sepsis with pneumonia Acute hypoxic respiratory failure secondary to above Paroxysmal atrial fibrillation with RVR, now NSR (new onset) H/o CVA with dysarthria Hypertensive heart disease Dyslipidemia Plan/Recommendation () - Transthoracic echocardiogram to evaluate cardiac function - Antiarrhythmic therapy, amiodarone BID - Rate control, metoprolol BID. Transition to XL prior to discharge - Anticoagulation with therapeutic Lovenox. Transition to DOAC when appropriate -?[id number] Score - Replete electrolytes as necessary, K>4 and Mg>2 - Initiate lipid-lowering agent - Sepsis work-up per primary care team - Consider single-antiplatelet therapy given hx of CVA Thank you for allowing us to care for this patient. Please call with any questions or concerns. This medical document was created using an electronic medical record system with voice recognition software and computerized dictation system. Although this document has been carefully reviewed, there might still be some phonetic and typographical errors. Occasional wrong-word or ``sound-alike substitutions may have occurred due to the inherent limitations of voice recognition software. These areas are purely typographical due to imperfections of the software programs and do not reflect any compromise in the patient's medical care. Please read the chart carefully and recognize, using context, where these substitutions have occurred. Plan discussed with: Patient, Spouse, Daughter, Other Date of Service: Jun 24, 2025 Billing Provider: MARY BREWSTER Cardiology Common Codes: [id number] HOSP CARE([facility] MARY BREWSTER Jun 24, 2025 11:44
[2025-06-24] MEDS: POTASSIUM CHL 20 Meq TABLET PO ONE (12:21)
[2025-06-24] MEDS: ACETYLCYSTEINE 20%(200MG/ML) SOL 4ML NEB SCH (14:37)
[2025-06-24] MEDS: LIDOCAINE 5% TOPICAL PATCH TOP ONE (14:49)
[2025-06-24] MEDS: guaiFENesin-DM 100/10mg/5ml SYR PO PRN (14:50)
--- NOTE | 2025-06-24 17:53 | DVHPN2 ---
Subjective c/o cough and congestion Changes from previous H/P or p: Changes Eyes: No Pain, No Vision change, No Conjunctivae inflammation, No Eyelid inflammation, No Other, No Redness ENT: No Ear pain, No Ear discharge, No Nose pain, No Nose discharge, No Nose congestion, No Mouth pain, No Mouth swelling, No Throat pain, No Throat swelling, No Other Cardiovascular: No Chest Pain, No Palpitations, No Orthopnea, No Paroxysmal Noc. Dyspnea, No Edema, No Lt Headedness, No Other Respiratory: Cough, Dry, Shortness of breath Gastrointestinal: No Nausea, No Vomiting, No Abdominal Pain, No Diarrhea, No Constipation, No Melena, No Hematochezia, No Other Genitourinary: No Dysuria, No Frequency, No Incontinence, No Hematuria, No Retention, No Other Musculoskeletal: No other, No neck pain, No shoulder pain, No arm pain, No back pain, No hand pain, No leg pain, No foot pain Skin: No Rash, No Lesions, No Jaundice, No Bruising, No Other Objective Vitals Vital Signs Date Time Temp Pulse Resp B/P (MAP) Pulse Ox O2 Delivery O2 Flow Rate FiO2 06/24/25 17:00 97.0 71 18 124/77 (93) 94 97.0 06/24/25 13:25 Nasal Cannula* 2 28 Intake/Output Intake and Output 06/24/25 07:00 Intake Total 300 ml Balance 300 ml Intake Oral 300 ml # Voids 1 General Appearance: Alert, Oriented X3, moderate distress Lungs: Other (Bilateral rhonchi) Cardiovascular: Other (Irregularly irregular tachycardic heart rate 140) Abdomen: Normal bowel sounds, Soft, No tenderness Extremities: No edema Medications Current Medications Medications Dose Ordered Sig/Mima Route Start Time Stop Time Status Last Admin Dose Admin Acetaminophen/ Hydrocodone Bitart 1 tab Q4HP PRN PO 06/22/25 23:30 06/23/25 22:13 1 TAB Ondansetron HCl 4 mg Q4HP PRN IV 06/22/25 23:30 Acetaminophen 650 mg Q6HR PO 06/23/25 00:00 06/24/25 17:28 650 MG Albuterol 2.5 mg Q4HWA [facility] 06/23/25 06:00 06/24/25 17:43 2.5 MG Ipratropium [place] 0.5 mg Q4HWA [facility] 06/23/25 06:00 06/24/25 17:43 0.5 MG Ceftriaxone Sodium/Dextrose 50 ml @ 50 mls/hr DAILY IV 06/23/25 10:00 06/24/25 11:02 50 MLS/HR Enoxaparin Sodium 80 mg Q12HR SC 06/23/25 22:00 06/24/25 11:07 80 MG Metoprolol Tartrate 25 mg BID PO 06/23/25 22:00 06/24/25 11:09 25 MG Doxycycline Hyclate 100 ml @ 50 mls/hr Q12H IV 06/23/25 14:00 Cancel Doxycycline Monohydrate 100 mg BID PO 06/23/25 22:00 06/24/25 11:09 100 MG Amiodarone HCl 200 mg Q12HR PO 06/23/25 22:00 06/24/25 11:09 200 MG Atorvastatin Calcium 40 mg HS PO 06/24/25 22:00 Acetylcysteine 200 mg Q8HR NEB 06/24/25 14:00 06/24/25 17:44 200 MG Guaifenesin/ Dextromethorphan 10 ml Q4HP PRN PO 06/24/25 13:45 06/24/25 14:50 10 ML Lidocaine 1 patch DAILY TOP 06/25/25 10:00 Laboratory Results Laboratory Tests 06/24/25 05:13 Chemistry Test 06/24/25 05:13 Albumin 4.0 g/dL (3.2-4.8) Calcium Level 8.8 mg/dL (8.7-10.4) Magnesium Level 2.4 mg/dL (1.6-2.6) Total Protein 6.8 g/dL (5.7-8.2) Lipid panel Test 06/24/25 05:13 Cholesterol Level 201 mg/dL (< 200) H HDL Cholesterol 26 mg/dL (40-59) L Triglycerides Level 308 mg/dL (< 150) H LFT Test 06/24/25 05:13 Alanine Aminotransferase (ALT) 22 U/L (7-40) Alkaline Phosphatase 148 U/L (46-116) H Aspartate Amino Transferase (AST) 34 U/L (13-40) Total Bilirubin 0.4 mg/dL (0.2-1.0) HgA1c, TSH Test 06/24/25 05:13 Thyroid Stimulating Hormone (TSH) 5.32 uIU/mL (0.55-4.78) H Urinalysis Test 06/22/25 19:45 Urine Color Light-yellow (Yellow) Urine Clarity Clear (Clear) Urine pH 5.5 (5.0-9.0) Urine Specific [place] 1.012 (1.001-1.035) Urine Protein Negative (Negative) Urine Ketones Trace (Negative) Urine Blood Negative /uL (Negative) Urine Nitrite Negative (Negative) Urine Bilirubin Negative (Negative) Urine Urobilinogen Normal mg/dL (Negative) Urine Leukocyte Esterase Negative /uL (Negative) Urine RBC 1 /hpf (0 - 4) Urine Microscopic WBC 1 /HPF (0-5) Urine Squamous Epithelial Cells Few /hpf (<5) Urine Bacteria None seen /hpf (None Seen) Urine Mucus Few (None Seen) Urine Glucose Normal mg/dL (Normal) Microbiology Microbiology Date/Time Source Procedure Growth Status 06/23/25 03:58 Nose MRSA Screen - Final Complete Assessment/Plan Assessment/Plan Acute hypoxic respiratory failure Atrial fibrillation with rapid ventricular response Possible congestive heart failure Possible underlying pneumonia Hypertension Old CVA Plan EKG Cardiology consult Troponin Echocardiogram Give metoprolol 25 mg twice a day Lovenox Get the home medications Called the but no answer IV antibiotics Rocephin and Zithromax Oxygen as needed Med neb treatments as needed Not stable for transfer 06/24/25: Cough: Robitussin, Mucomyst, Back pain: Lidocaine patch Antibiotics Lovenox Metoprolol Replace K+ Rocephin and Doxy Not stable for transfer Plan discussed with: Patient My Orders Orders - NANCY CRISTOBAL MD Procedure Category Date Status Time Acetylcysteine PHA 06/24/25 In Process Inhalation 20% 14:00 Guaifenesin-Dextromet PHA 06/24/25 In Process Liquid (Robitussin 13:45 Lidocaine 5% Topical PHA 06/25/25 In Process Patch (Lidoderm 5% 10:00 Date of Service: Jun 24, 2025 Billing Provider: NANCY CRISTOBAL MD Common Visit Codes: [id number] INP/OBS CARE(HIGH) NANCY CRISTOBAL MD Jun 24, 2025 17:53
--- NOTE | 2025-06-24 20:09 | DVHSR ---
APPROVED REPORT EXAM: LIMITED Two-dimensional and M-mode echocardiogram with Doppler and color Doppler. Blood Pressure: 110/66 mmHg INDICATION afib DIMENSIONS LVDd (3.8-5.7cm) LA (2D) 4.5 (1.9-4.0cm) Aortic Root (2.0-3.7cm) EF (%) 55.0 (55-70%) Rt. Atrium 3.6 (1.9-4.0cm) Asc. Aorta cm IVSd (0.7-1.1cm) RV (D) 3.0 (1.8-2.4cm) Mitral Valve Mitral Mitral Stenosis E wave 0.48m/s MV Mean GR. mmHg A wave 0.74m/s MV Peak GR. mmHg E/A ratio 0.6 2D MVA cm2 DECEL Time 260ms PRESS 1/2 Time ms Aortic Valve Aortic Valve Aortic Stenosis V1 0.93m/s AO Mean GR. 13mmHg V2 2.17m/s AO Peak GR. 20mmHg LVOT Diameter 1.7 (1.8-2.4cm) Doppler YVETTE 0.97cm2 Other Information Quality : Technically Limited Rhythm : Technically limited study due to body habitus.patient position. Conclusion HEAVILY CALCIFIED AORTIC LEAFLETS APPEAR LIKE MODERATE DEGREE AORTIC STENOSIS LV EF IS 65% DYSKINESIS OF IVS RV AND RA DILATED NORMAL MV,TV AND PV NO EFFUSION I SUGGEST TO REPEAT LIMITED ECHO FOR PROPER LIMITED STUDY FOR AORTIC VALVE
[2025-06-24] MEDS: ATORVASTATIN 20 MG TAB PO SCH (21:36)
[2025-06-25] VITALS (17 sets, daily range): BP systolic 102–148; BP diastolic 60–86; PULSE 65–86; RESP 17–22; TEMP 97.1–98.7; O2SAT 93–100
--- NOTE | 2025-06-25 00:05 | DVHPN2 ---
Consult Progress Note Date Seen: Jun 24, 2025 Subjective Other Systems: Patient was seen and evaluated in follow up. Patient is on 2 LPM NC. Denies any cardiac symptoms. No overnight cardiac events reported. WBC 13.9, Trig 308, Chol 201, LDL 152, HDL 26. Telemetry reviewed. Objective vital signs Vital Sign Date Time Temp Pulse Resp B/P (MAP) Pulse Ox O2 Delivery O2 Flow Rate FiO2 06/24/25 22:38 63 18 99 06/24/25 22:37 129/92 06/24/25 22:28 Nasal Cannula* 2 28 06/24/25 21:00 98.4 98.4 medications Current Medications Medications Dose Ordered Sig/Mima Route Start Time Stop Time Status Last Admin Dose Admin Acetaminophen/ Hydrocodone Bitart 1 tab Q4HP PRN PO 06/22/25 23:30 06/24/25 22:53 1 TAB Ondansetron HCl 4 mg Q4HP PRN IV 06/22/25 23:30 Acetaminophen 650 mg Q6HR PO 06/23/25 00:00 06/24/25 17:28 650 MG Albuterol 2.5 mg Q4HWA [facility] 06/23/25 06:00 06/24/25 22:28 2.5 MG Ipratropium [place] 0.5 mg Q4HWA [facility] 06/23/25 06:00 06/24/25 22:28 0.5 MG Ceftriaxone Sodium/Dextrose 50 ml @ 50 mls/hr DAILY IV 06/23/25 10:00 06/24/25 11:02 50 MLS/HR Enoxaparin Sodium 80 mg Q12HR SC 06/23/25 22:00 06/24/25 21:37 80 MG Metoprolol Tartrate 25 mg BID PO 06/23/25 22:00 06/24/25 21:37 25 MG Doxycycline Hyclate 100 ml @ 50 mls/hr Q12H IV 06/23/25 14:00 Cancel Doxycycline Monohydrate 100 mg BID PO 06/23/25 22:00 06/24/25 21:36 100 MG Amiodarone HCl 200 mg Q12HR PO 06/23/25 22:00 06/24/25 21:36 200 MG Atorvastatin Calcium 40 mg HS PO 06/24/25 22:00 06/24/25 21:36 40 MG Acetylcysteine 200 mg Q8HR NEB 06/24/25 14:00 06/24/25 17:44 200 MG Guaifenesin/ Dextromethorphan 10 ml Q4HP PRN PO 06/24/25 13:45 06/24/25 14:50 10 ML Lidocaine 1 patch DAILY TOP 06/25/25 10:00 Examination: GENERAL:Normal, HEENT:Normal, NECK:Abnormal, LUNGS:Abnormal (Coarse right sided), CVS:Normal (NSR ), SKIN:Normal, NEURO:Abnormal (Alert but limited speech) laboratory and microbiology Laboratory Tests 06/24/25 05:13 Test 06/24/25 05:13 Range/Units Serum Glucose 81 74-106 mg/dL Problem List/Assessment/Plan Problem List/Assessment/Plan Problem List Sepsis with pneumonia. Acute hypoxic respiratory failure secondary to above. Paroxysmal atrial fibrillation with RVR, now NSR (new onset). H/o CVA with dysarthria. Hypertensive heart disease. Dyslipidemia. Plan/Recommendation Continued all current supportive medical care. Patient has been seen by Shi Craft NP on my behalf. We have discussed the plan with the patient. Transthoracic echocardiogram to evaluate cardiac function. Antiarrhythmic therapy, amiodarone BID. Rate control, metoprolol BID. Transition to XL prior to discharge. Anticoagulation with therapeutic Lovenox. Transition to DOAC when appropriate. ?[id number] Score. Replete electrolytes as necessary, K>4 and Mg>2. Initiate lipid-lowering agent. Sepsis work-up per primary care team. Consider single-antiplatelet therapy given hx of CVA. Additional plan as per the hospital course. Plan discussed with: Patient Date of Service: Jun 24, 2025 Billing Provider: JOHN PAUL FIERRO MD Cardiology Common Codes: [id number] HOSP CARE(High JOHN PAUL FIERRO MD Jun 25, 2025 00:05
[2025-06-25 06:15] LABS: Alanine Aminotransferase 20 U/L (7-40); Anion Gap 9 (5-15); BUN/Creatinine Ratio 27.1 (10.0-20.0); Blood Urea Nitrogen 16 mg/dL (9-23); Calcium 8.8 mg/dL (8.7-10.4); Carbon Dioxide 24 mmol/L (20-31); Glucose 82 mg/dL (74-106); Magnesium 2.4 mg/dL (1.6-2.6); Potassium 3.9 mmol/L (3.5-5.1); Sodium 143 mmol/L (136-145); Total Protein 6.7 g/dL (5.7-8.2)
[2025-06-25 06:16] LABS: Albumin 3.9 g/dL (3.2-4.8); Bilirubin, Total 0.4 mg/dL (0.2-1.0)
[2025-06-25 06:17] LABS: Alkaline Phosphatase 140 U/L (46-116); Chloride 110 mmol/L (98-107)
--- NOTE | 2025-06-25 07:52 | ECG ---
[facility] Test Date: 2025-06-24 Test Time: 22:45:15 Pat Name: QUINCY JASMINE Department: Room: [facility] B Gender: F Integrity Analyst: MELVIN : 1950 Requested By: REYNALDO SWANSON Order Number: [id number] Reading MD: Kali Barnett Measurements Intervals [place] Rate: 67 P: 51 OK: 197 QRS: -20 QRSD: 99 T: 9 QT: 424 QTc: 448 Interpretive Statements Sinus rhythm Inferior infarct, old Electronically Signed On 06-25-2025 10:38:33 PST by Kali Barnett Please click the below link to view image of tracing.
[2025-06-25] MEDS: LIDOCAINE 5% TOPICAL PATCH TOP SCH (10:07)
--- NOTE | 2025-06-25 12:15 | DVHPN2 ---
Progress Note Date Seen: Jun 25, 2025 Resident Creating Document: JHElaineJANNAMARIA Welch RESIDENT Medical Necessity Reason Pt with a Central, PICC or Fol: No Subjective Review of Systems Patient seen and examined with the bedside Lying comfortably in bed with a 1-2 L oxygen nasal cannula saturating more than 95% Cough has improved, monitor shows sinus rhythm no overnight cardiac events noted Objective vital signs Vital Sign Date Time Temp Pulse Resp B/P (MAP) Pulse Ox O2 Delivery O2 Flow Rate FiO2 06/25/25 10:07 74 132/86 06/25/25 10:05 18 100 06/25/25 09:58 Nasal Cannula 2.0 06/25/25 09:58 28 06/25/25 09:00 97.1 97.1 Total Intake and Output 06/24/25 06/24/25 06/25/25 15:00 23:00 07:00 Intake Total 200 ml Balance 200 ml medications Current Medications Medications Dose Ordered Sig/Mima Route Start Time Stop Time Status Last Admin Dose Admin Acetaminophen/ Hydrocodone Bitart 1 tab Q4HP PRN PO 06/22/25 23:30 06/25/25 11:36 1 TAB Ondansetron HCl 4 mg Q4HP PRN IV 06/22/25 23:30 Acetaminophen 650 mg Q6HR PO 06/23/25 00:00 06/24/25 17:28 650 MG Albuterol 2.5 mg Q4HWA [facility] 06/23/25 06:00 06/25/25 09:58 2.5 MG Ipratropium [place] 0.5 mg Q4HWA [facility] 06/23/25 06:00 06/25/25 09:58 0.5 MG Ceftriaxone Sodium/Dextrose 50 ml @ 50 mls/hr DAILY IV 06/23/25 10:00 06/25/25 10:06 50 MLS/HR Enoxaparin Sodium 80 mg Q12HR SC 06/23/25 22:00 06/25/25 10:07 80 MG Metoprolol Tartrate 25 mg BID PO 06/23/25 22:00 06/25/25 10:07 25 MG Doxycycline Hyclate 100 ml @ 50 mls/hr Q12H IV 06/23/25 14:00 Cancel Doxycycline Monohydrate 100 mg BID PO 06/23/25 22:00 06/25/25 10:07 100 MG Amiodarone HCl 200 mg Q12HR PO 06/23/25 22:00 06/25/25 10:07 200 MG Atorvastatin Calcium 40 mg HS PO 06/24/25 22:00 06/24/25 21:36 40 MG Acetylcysteine 200 mg Q8HR NEB 06/24/25 14:00 06/25/25 07:25 200 MG Guaifenesin/ Dextromethorphan 10 ml Q4HP PRN PO 06/24/25 13:45 06/25/25 10:09 10 ML Lidocaine 1 patch DAILY TOP 06/25/25 10:00 06/25/25 10:07 1 PATCH Examination Skin - Patients skin is warm and dry. HEENT - normocephalic, atraumatic, moist mucous membranes, no scleral icterus, no conjunctival pallor. Neck - full ROM, no LAD, no JVD Pulmonary - B/L mostly clear breath sounds without any overt rales cardiovascular - irregularly irregular S1,S2 heard. peripheral pulses normal radial 2+, pedal 2+. No extremity edema GI - soft, nontender abdomen. no hepatospleenomegaly. Bowel sounds normoactive Neurological - Patient is A/O X 3 . Right upper extremity strength 4/5, left upper extremity strength 5/5, speech defect because of history of stroke, no sensory deficiets. laboratory and microbiology Laboratory Tests 06/25/25 04:59 06/24/25 05:13 Test 06/25/25 04:59 Range/Units Serum Glucose 82 74-106 mg/dL Microbiology Date/Time Source Procedure Growth Status 06/23/25 03:58 Nose MRSA Screen - Final Complete Problem List/Assessment/Plan Problem List/Assessment/Plan Sepsis with pneumonia Acute hypoxic respiratory failure secondary to above Paroxysmal atrial fibrillation with RVR, now NSR (new onset) H/o CVA with dysarthria Hypertensive heart disease Dyslipidemia Plan/Recommendation () - Transthoracic echocardiogram showed LVEF 65% with dyskinesis of the interventricular septum, RV and RA dilated, heavily calcified aortic leaflets with moderate-degree aortic stenosis - Antiarrhythmic therapy, amiodarone BID - Rate control, metoprolol BID. Transition to XL prior to discharge - Anticoagulation with therapeutic Lovenox. Transition to DOAC when appropriate [id number] Score - 5, HASBLED- 2 - Replete electrolytes as necessary, K>4 and Mg>2 - lipid-lowering agent - Sepsis work-up per primary care team Thank you for allowing us to care for this patient. Please call with any questions or concerns. Plan discussed with: Patient, Spouse, Other (RN) ANNAMARIA CANAS RESIDENT Jun 25, 2025 12:15
--- NOTE | 2025-06-25 16:19 | DVHPN2 ---
Progress Note - Dictate Date Seen: Jun 25, 2025 Medical Necessity Reason Pt with a Central, PICC or Fol: No Subjective Patient was seen and evaluated in follow up. Patient is lying comfortably in bed with a 1-2 L oxygen nasal cannula saturating more than 95%. Cough has improved, cardiac cath lab radiology technologist shows sinus rhythm no overnight cardiac events noted. Telemetry reviewed. vital signs Vital Sign Date Time Temp Pulse Resp B/P (MAP) Pulse Ox O2 Delivery O2 Flow Rate FiO2 06/25/25 11:07 65 106/61 06/25/25 10:05 18 100 06/25/25 09:58 Nasal Cannula 2.0 06/25/25 09:58 28 06/25/25 09:00 97.1 97.1 Total Intake and Output 06/24/25 06/24/25 06/25/25 15:00 23:00 07:00 Intake Total 200 ml Balance 200 ml medications Current Medications Medications Dose Ordered Sig/Mima Route Start Time Stop Time Status Last Admin Dose Admin Acetaminophen/ Hydrocodone Bitart 1 tab Q4HP PRN PO 06/22/25 23:30 06/25/25 11:36 1 TAB Ondansetron HCl 4 mg Q4HP PRN IV 06/22/25 23:30 Acetaminophen 650 mg Q6HR PO 06/23/25 00:00 06/24/25 17:28 650 MG Albuterol 2.5 mg Q4HWA [facility] 06/23/25 06:00 06/25/25 09:58 2.5 MG Ipratropium [place] 0.5 mg Q4HWA [facility] 06/23/25 06:00 06/25/25 09:58 0.5 MG Ceftriaxone Sodium/Dextrose 50 ml @ 50 mls/hr DAILY IV 06/23/25 10:00 06/25/25 10:06 50 MLS/HR Enoxaparin Sodium 80 mg Q12HR SC 06/23/25 22:00 06/25/25 10:07 80 MG Metoprolol Tartrate 25 mg BID PO 06/23/25 22:00 06/25/25 10:07 25 MG Doxycycline Hyclate 100 ml @ 50 mls/hr Q12H IV 06/23/25 14:00 Cancel Doxycycline Monohydrate 100 mg BID PO 06/23/25 22:00 06/25/25 10:07 100 MG Amiodarone HCl 200 mg Q12HR PO 06/23/25 22:00 06/25/25 10:07 200 MG Atorvastatin Calcium 40 mg HS PO 06/24/25 22:00 06/24/25 21:36 40 MG Acetylcysteine 200 mg Q8HR NEB 06/24/25 14:00 06/25/25 07:25 200 MG Guaifenesin/ Dextromethorphan 10 ml Q4HP PRN PO 06/24/25 13:45 06/25/25 10:09 10 ML Lidocaine 1 patch DAILY TOP 06/25/25 10:00 06/25/25 10:07 1 PATCH objective GENERAL: Alert and oriented x 3. No acute distress. EYES: PERRL, EOMI. Anicteric. HENT: Moist mucous membranes. LUNGS: Clear to auscultation bilaterally. CARDIOVASCULAR: Irregular rate and rhythm. ABDOMEN: Soft, nontender and nondistended. EXTREMITIES: No edema. NEUROLOGIC: No focal neurological deficits. Right upper extremity strength 4/5, left upper extremity strength 5/5, speech defect because of history of stroke, no sensory deficits. SKIN: Warm, dry. laboratory and microbiology Laboratory Tests 06/25/25 04:59 06/24/25 05:13 Test 06/25/25 04:59 Range/Units Serum Glucose 82 74-106 mg/dL Problem List Sepsis with pneumonia. Acute hypoxic respiratory failure secondary to above. Paroxysmal atrial fibrillation with RVR, now NSR (new onset). H/o CVA with dysarthria. Hypertensive heart disease. Dyslipidemia. Assessment/Plan Continued all current supportive medical care. Patient has been seen by Zenon Zuleta Resident on my behalf, we have discussed the plan with the patient. Transthoracic echocardiogram showed LVEF 65% with dyskinesis of the interventricular septum, RV and RA dilated, heavily calcified aortic leaflets with moderate-degree aortic stenosis. Antiarrhythmic therapy, amiodarone BID. Rate control, metoprolol BID. Transition to XL prior to discharge. Anticoagulation with therapeutic Lovenox. Transition to DOAC when appropriate. [id number] Score - 5, HASBLED- 2. Replete electrolytes as necessary, K>4 and Mg>2. Lipid-lowering agent. Sepsis work-up per primary care team. Additional plan as per the hospital course. Plan discussed with: Patient JOHN PAUL FIERRO MD Jun 25, 2025 13:34
--- NOTE | 2025-06-25 18:09 | DVHPN2 ---
Subjective Better Less cough Changes from previous H/P or p: Changes Eyes: No Pain, No Vision change, No Conjunctivae inflammation, No Eyelid inflammation, No Other, No Redness ENT: No Ear pain, No Ear discharge, No Nose pain, No Nose discharge, No Nose congestion, No Mouth pain, No Mouth swelling, No Throat pain, No Throat swelling, No Other Cardiovascular: No Chest Pain, No Palpitations, No Orthopnea, No Paroxysmal Noc. Dyspnea, No Edema, No Lt Headedness, No Other Respiratory: Cough, Dry, Shortness of breath Gastrointestinal: No Nausea, No Vomiting, No Abdominal Pain, No Diarrhea, No Constipation, No Melena, No Hematochezia, No Other Genitourinary: No Dysuria, No Frequency, No Incontinence, No Hematuria, No Retention, No Other Musculoskeletal: No other, No neck pain, No shoulder pain, No arm pain, No back pain, No hand pain, No leg pain, No foot pain Skin: No Rash, No Lesions, No Jaundice, No Bruising, No Other Objective Vitals Vital Signs Date Time Temp Pulse Resp B/P (MAP) Pulse Ox O2 Delivery O2 Flow Rate FiO2 06/25/25 17:00 98.1 72 21 123/60 (81) 93 98.1 06/25/25 14:15 Nasal Cannula 2.0 06/25/25 14:15 28 Intake/Output Intake and Output 06/25/25 07:00 Intake Total 200 ml Balance 200 ml Intake Oral 200 ml # Voids 2 General Appearance: Alert, Oriented X3, moderate distress Lungs: Other (Bilateral rhonchi) Cardiovascular: Other (Irregularly irregular tachycardic heart rate 140) Abdomen: Normal bowel sounds, Soft, No tenderness Extremities: No edema Medications Current Medications Medications Dose Ordered Sig/Mima Route Start Time Stop Time Status Last Admin Dose Admin Acetaminophen/ Hydrocodone Bitart 1 tab Q4HP PRN PO 06/22/25 23:30 06/25/25 15:55 1 TAB Ondansetron HCl 4 mg Q4HP PRN IV 06/22/25 23:30 Acetaminophen 650 mg Q6HR PO 06/23/25 00:00 06/24/25 17:28 650 MG Albuterol 2.5 mg Q4HWA NEB 06/23/25 06:00 06/25/25 14:15 2.5 MG Ipratropium [place] 0.5 mg Q4HWA [facility] [place] 06/23/25 06:00 06/25/25 14:15 0.5 MG Ceftriaxone Sodium/Dextrose 50 ml @ 50 mls/hr DAILY IV 06/23/25 10:00 06/25/25 10:06 50 MLS/HR Enoxaparin Sodium 80 mg Q12HR SC 06/23/25 22:00 06/25/25 10:07 80 MG Metoprolol Tartrate 25 mg BID PO 06/23/25 22:00 06/25/25 10:07 25 MG Doxycycline Hyclate 100 ml @ 50 mls/hr Q12H IV 06/23/25 14:00 Cancel Doxycycline Monohydrate 100 mg BID PO 06/23/25 22:00 06/25/25 10:07 100 MG Amiodarone HCl 200 mg Q12HR PO 06/23/25 22:00 06/25/25 10:07 200 MG Atorvastatin Calcium 40 mg HS PO 06/24/25 22:00 06/24/25 21:36 40 MG Acetylcysteine 200 mg Q8HR NEB 06/24/25 14:00 06/25/25 14:15 200 MG Guaifenesin/ Dextromethorphan 10 ml Q4HP PRN PO 06/24/25 13:45 06/25/25 10:09 10 ML Lidocaine 1 patch DAILY TOP 06/25/25 10:00 06/25/25 10:07 1 PATCH Laboratory Results Laboratory Tests 06/24/25 05:13 06/25/25 04:59 Chemistry Test 06/25/25 04:59 Albumin 3.9 g/dL (3.2-4.8) Calcium Level 8.8 mg/dL (8.7-10.4) Magnesium Level 2.4 mg/dL (1.6-2.6) Total Protein 6.7 g/dL (5.7-8.2) LFT Test 06/25/25 04:59 Alanine Aminotransferase (ALT) 20 U/L (7-40) Alkaline Phosphatase 140 U/L (46-116) H Aspartate Amino Transferase (AST) 24 U/L (13-40) Total Bilirubin 0.4 mg/dL (0.2-1.0) Urinalysis Test 06/22/25 19:45 Urine Color Light-yellow (Yellow) Urine Clarity Clear (Clear) Urine pH 5.5 (5.0-9.0) Urine Specific [place] 1.012 (1.001-1.035) Urine Protein Negative (Negative) Urine Ketones Trace (Negative) Urine Blood Negative /uL (Negative) Urine Nitrite Negative (Negative) Urine Bilirubin Negative (Negative) Urine Urobilinogen Normal mg/dL (Negative) Urine Leukocyte Esterase Negative /uL (Negative) Urine RBC 1 /hpf (0 - 4) Urine Microscopic WBC 1 /HPF (0-5) Urine Squamous Epithelial Cells Few /hpf (<5) Urine Bacteria None seen /hpf (None Seen) Urine Mucus Few (None Seen) Urine Glucose Normal mg/dL (Normal) Microbiology Microbiology Date/Time Source Procedure Growth Status 06/23/25 03:58 Nose MRSA Screen - Final Complete Assessment/Plan Assessment/Plan Acute hypoxic respiratory failure Atrial fibrillation with rapid ventricular response Possible congestive heart failure Possible underlying pneumonia Hypertension Old CVA Plan EKG Cardiology consult Troponin Echocardiogram Give metoprolol 25 mg twice a day Lovenox Get the home medications Called the but no answer IV antibiotics Rocephin and Zithromax Oxygen as needed Med neb treatments as needed Not stable for transfer 06/24/25: Cough: Robitussin, Mucomyst, Back pain: Lidocaine patch Antibiotics Lovenox Metoprolol Replace K+ Rocephin and Doxy Not stable for transfer 06/25/25: Continue IV antibiotics O2 Med Nebs Monitor closely Not stable for transfer Plan discussed with: Patient My Orders Orders - NANCY CRISTOBAL MD Procedure Category Date Status Time Incentive Spirometry ORDERS 06/25/25 Transmitted Q 1hr 11:20 Date of Service: Jun 25, 2025 Billing Provider: NANCY CRISTOBAL MD Common Visit Codes: [id number] INP/OBS CARE(HIGH) NANCY CRISTOBAL MD Jun 25, 2025 18:09
[2025-06-26] VITALS (18 sets, daily range): BP systolic 116–158; BP diastolic 63–84; PULSE 65–98; RESP 16–21; TEMP 96.6–98.2; O2SAT 63–100
[2025-06-26 05:23] LABS: Hematocrit 41.9 % (36.0-46.0); Hemoglobin 14.2 g/dL (12.2-16.2); Mean Corpuscular Hemoglobin 30.0 pg (28.0-32.0); Mean Corpuscular Volume 88.6 fL (80.0-100.0); Nucleated Red Blood Cells % 0.3 %
[2025-06-26 05:39] LABS: Alanine Aminotransferase 19 U/L (7-40); Albumin 4.0 g/dL (3.2-4.8); Anion Gap 10 (5-15); BUN/Creatinine Ratio 19.7 (10.0-20.0); Bilirubin, Total 0.6 mg/dL (0.2-1.0); Blood Urea Nitrogen 14 mg/dL (9-23); Calcium 8.8 mg/dL (8.7-10.4); Carbon Dioxide 24 mmol/L (20-31); Glucose 85 mg/dL (74-106); Magnesium 2.3 mg/dL (1.6-2.6); Potassium 3.7 mmol/L (3.5-5.1); Sodium 144 mmol/L (136-145); Total Protein 6.7 g/dL (5.7-8.2)
[2025-06-26 05:40] LABS: Alkaline Phosphatase 142 U/L (46-116); Chloride 110 mmol/L (98-107)
--- NOTE | 2025-06-26 09:45 | ECG ---
[facility] Test Date: 2025-06-23 Test Time: 17:20:08 Pat Name: QUINCY JASMINE Department: Room: 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
--- NOTE | 2025-06-26 13:45 | DVHPN2 ---
Subjective Better Less cough Changes from previous H/P or p: Changes Eyes: No Pain, No Vision change, No Conjunctivae inflammation, No Eyelid inflammation, No Other, No Redness ENT: No Ear pain, No Ear discharge, No Nose pain, No Nose discharge, No Nose congestion, No Mouth pain, No Mouth swelling, No Throat pain, No Throat swelling, No Other Cardiovascular: No Chest Pain, No Palpitations, No Orthopnea, No Paroxysmal Noc. Dyspnea, No Edema, No Lt Headedness, No Other Respiratory: Cough, Dry, Shortness of breath Gastrointestinal: No Nausea, No Vomiting, No Abdominal Pain, No Diarrhea, No Constipation, No Melena, No Hematochezia, No Other Genitourinary: No Dysuria, No Frequency, No Incontinence, No Hematuria, No Retention, No Other Musculoskeletal: No other, No neck pain, No shoulder pain, No arm pain, No back pain, No hand pain, No leg pain, No foot pain Skin: No Rash, No Lesions, No Jaundice, No Bruising, No Other Objective Vitals Vital Signs Date Time Temp Pulse Resp B/P (MAP) Pulse Ox O2 Delivery O2 Flow Rate FiO2 06/26/25 13:00 97.7 65 21 120/63 (82) 91 97.7 06/26/25 09:52 Nasal Cannula* 3 32 Intake/Output Intake and Output 06/26/25 07:00 Intake Total 700 ml Balance 700 ml Intake Oral 700 ml # Voids 4 # Bowel Movements 3 General Appearance: Alert, Oriented X3, moderate distress Lungs: Other (Bilateral rhonchi) Cardiovascular: Other (Irregularly irregular tachycardic heart rate 140) Abdomen: Normal bowel sounds, Soft, No tenderness Extremities: No edema Medications Current Medications Medications Dose Ordered Sig/Mima Route Start Time Stop Time Status Last Admin Dose Admin Acetaminophen/ Hydrocodone Bitart 1 tab Q4HP PRN PO 06/22/25 23:30 06/26/25 12:54 1 TAB Ondansetron HCl 4 mg Q4HP PRN IV 06/22/25 23:30 Acetaminophen 650 mg Q6HR PO 06/23/25 00:00 06/24/25 17:28 650 MG Albuterol 2.5 mg Q4HWA NEB 06/23/25 06:00 06/26/25 09:52 2.5 MG Ipratropium [place] 0.5 mg Q4HWA [facility] 06/23/25 06:00 06/26/25 09:52 0.5 MG Ceftriaxone Sodium/Dextrose 50 ml @ 50 mls/hr DAILY IV 06/23/25 10:00 06/26/25 09:44 50 MLS/HR Enoxaparin Sodium 80 mg Q12HR SC 06/23/25 22:00 06/26/25 09:44 80 MG Metoprolol Tartrate 25 mg BID PO 06/23/25 22:00 06/26/25 09:45 25 MG Doxycycline Hyclate 100 ml @ 50 mls/hr Q12H IV 06/23/25 14:00 Cancel Doxycycline Monohydrate 100 mg BID PO 06/23/25 22:00 06/26/25 09:45 100 MG Amiodarone HCl 200 mg Q12HR PO 06/23/25 22:00 06/26/25 09:45 200 MG Atorvastatin Calcium 40 mg HS PO 06/24/25 22:00 06/25/25 22:01 40 MG Acetylcysteine 200 mg Q8HR [facility] 06/24/25 14:00 06/26/25 06:47 200 MG Guaifenesin/ Dextromethorphan 10 ml Q4HP PRN PO 06/24/25 13:45 06/26/25 09:44 10 ML Lidocaine 1 patch DAILY TOP 06/25/25 10:00 06/26/25 09:45 1 PATCH Laboratory Results Laboratory Tests 06/26/25 04:44 Chemistry Test 06/26/25 04:44 Albumin 4.0 g/dL (3.2-4.8) Calcium Level 8.8 mg/dL (8.7-10.4) Magnesium Level 2.3 mg/dL (1.6-2.6) Total Protein 6.7 g/dL (5.7-8.2) LFT Test 06/26/25 04:44 Alanine Aminotransferase (ALT) 19 U/L (7-40) Alkaline Phosphatase 142 U/L (46-116) H Aspartate Amino Transferase (AST) 21 U/L (13-40) Total Bilirubin 0.6 mg/dL (0.2-1.0) Urinalysis Test 06/22/25 19:45 Urine Color Light-yellow (Yellow) Urine Clarity Clear (Clear) Urine pH 5.5 (5.0-9.0) Urine Specific [place] 1.012 (1.001-1.035) Urine Protein Negative (Negative) Urine Ketones Trace (Negative) Urine Blood Negative /uL (Negative) Urine Nitrite Negative (Negative) Urine Bilirubin Negative (Negative) Urine Urobilinogen Normal mg/dL (Negative) Urine Leukocyte Esterase Negative /uL (Negative) Urine RBC 1 /hpf (0 - 4) Urine Microscopic WBC 1 /HPF (0-5) Urine Squamous Epithelial Cells Few /hpf (<5) Urine Bacteria None seen /hpf (None Seen) Urine Mucus Few (None Seen) Urine Glucose Normal mg/dL (Normal) Microbiology Microbiology Date/Time Source Procedure Growth Status 06/23/25 03:58 Nose MRSA Screen - Final Complete Assessment/Plan Assessment/Plan Acute hypoxic respiratory failure Atrial fibrillation with rapid ventricular response Possible congestive heart failure Possible underlying pneumonia Hypertension Old CVA Plan EKG Cardiology consult Troponin Echocardiogram Give metoprolol 25 mg twice a day Lovenox Get the home medications Called the but no answer IV antibiotics Rocephin and Zithromax Oxygen as needed Med neb treatments as needed Not stable for transfer 06/24/25: Cough: Robitussin, Mucomyst, Back pain: Lidocaine patch Antibiotics Lovenox Metoprolol Replace K+ Rocephin and Doxy Not stable for transfer 06/25/25: Continue IV antibiotics O2 Med Nebs Monitor closely Not stable for transfer 06/26/2025: The patient is improving Continue the IV antibiotics Continue treatment Oxygen and med neb treatments as needed Incentive spirometry Not stable for transfer Plan discussed with: Patient Date of Service: Jun 26, 2025 Billing Provider: NANCY CRISTOBAL MD Common Visit Codes: [id number] INP/OBS CARE(HIGH) NANCY CRISTOBAL MD Jun 26, 2025 13:45
--- NOTE | 2025-06-26 18:48 | DVHPN2 ---
Progress Note - Dictate Date Seen: Jun 26, 2025 Medical Necessity Reason Pt with a Central, PICC or Fol: No Subjective Patient was seen and evaluated in follow up. Patient is on 3 LPM NC. Patient is complaining of a cough. Patient states she is feeling better today. WBC 11.2. Telemetry reviewed. vital signs Vital Sign Date Time Temp Pulse Resp B/P (MAP) Pulse Ox O2 Delivery O2 Flow Rate FiO2 06/26/25 17:00 97.9 68 16 124/78 (93) 95 97.9 06/26/25 13:58 Nasal Cannula* 3 32 Total Intake and Output 06/25/25 06/25/25 06/26/25 15:00 23:00 07:00 Intake Total 200 ml 500 ml Balance 200 ml 500 ml medications Current Medications Medications Dose Ordered Sig/Mima Route Start Time Stop Time Status Last Admin Dose Admin Acetaminophen/ Hydrocodone Bitart 1 tab Q4HP PRN PO 06/22/25 23:30 06/26/25 12:54 1 TAB Ondansetron HCl 4 mg Q4HP PRN IV 06/22/25 23:30 Acetaminophen 650 mg Q6HR PO 06/23/25 00:00 06/24/25 17:28 650 MG Albuterol 2.5 mg Q4HWA [facility] 06/23/25 06:00 06/26/25 13:57 2.5 MG Ipratropium [place] 0.5 mg Q4HWA [facility] 06/23/25 06:00 06/26/25 13:57 0.5 MG Ceftriaxone Sodium/Dextrose 50 ml @ 50 mls/hr DAILY IV 06/23/25 10:00 06/26/25 09:44 50 MLS/HR Enoxaparin Sodium 80 mg Q12HR SC 06/23/25 22:00 06/26/25 09:44 80 MG Metoprolol Tartrate 25 mg BID PO 06/23/25 22:00 06/26/25 09:45 25 MG Doxycycline Hyclate 100 ml @ 50 mls/hr Q12H IV 06/23/25 14:00 Cancel Doxycycline Monohydrate 100 mg BID PO 06/23/25 22:00 06/26/25 09:45 100 MG Amiodarone HCl 200 mg Q12HR PO 06/23/25 22:00 06/26/25 09:45 200 MG Atorvastatin Calcium 40 mg HS PO 06/24/25 22:00 06/25/25 22:01 40 MG Acetylcysteine 200 mg Q8HR NEB 06/24/25 14:00 06/26/25 13:57 200 MG Guaifenesin/ Dextromethorphan 10 ml Q4HP PRN PO 06/24/25 13:45 06/26/25 09:44 10 ML Lidocaine 1 patch DAILY TOP 06/25/25 10:00 06/26/25 09:45 1 PATCH objective GENERAL: Alert and oriented x 3. No acute distress. EYES: PERRL, EOMI. Anicteric. HENT: Moist mucous membranes. LUNGS: Clear to auscultation bilaterally. CARDIOVASCULAR: Irregular rate and rhythm. ABDOMEN: Soft, nontender and nondistended. EXTREMITIES: No edema. NEUROLOGIC: No focal neurological deficits. Right upper extremity strength 4/5, left upper extremity strength 5/5, speech defect because of history of stroke, no sensory deficits. SKIN: Warm, dry. laboratory and microbiology Laboratory Tests 06/26/25 04:44 Test 06/26/25 04:44 Range/Units Serum Glucose 85 74-106 mg/dL Problem List Sepsis with pneumonia. Acute hypoxic respiratory failure secondary to above. Paroxysmal atrial fibrillation with RVR, now NSR (new onset). H/o CVA with dysarthria. Hypertensive heart disease. Dyslipidemia. Assessment/Plan Continued all current supportive medical care. [place] for pain management. Amiodarone. Lipitor, Metoprolol. IV antibiotics as ordered. DVT prophylactics. Additional plan as per the hospital course. Plan discussed with: Patient JOHN PAUL FIERRO MD Jun 26, 2025 18:48
[2025-06-27] VITALS (9 sets, daily range): BP systolic 129–159; BP diastolic 71–104; PULSE 61–67; RESP 16–20; TEMP 97.2–98.4; O2SAT 94–98
--- NOTE | 2025-06-27 16:31 | DVHPN2 ---
Subjective Much better Less cough Less wheezing Back pain is also better Changes from previous H/P or p: Changes Eyes: No Pain, No Vision change, No Conjunctivae inflammation, No Eyelid inflammation, No Other, No Redness ENT: No Ear pain, No Ear discharge, No Nose pain, No Nose discharge, No Nose congestion, No Mouth pain, No Mouth swelling, No Throat pain, No Throat swelling, No Other Cardiovascular: No Chest Pain, No Palpitations, No Orthopnea, No Paroxysmal Noc. Dyspnea, No Edema, No Lt Headedness, No Other Respiratory: Cough, Dry, Shortness of breath Gastrointestinal: No Nausea, No Vomiting, No Abdominal Pain, No Diarrhea, No Constipation, No Melena, No Hematochezia, No Other Genitourinary: No Dysuria, No Frequency, No Incontinence, No Hematuria, No Retention, No Other Musculoskeletal: No other, No neck pain, No shoulder pain, No arm pain, No back pain, No hand pain, No leg pain, No foot pain Skin: No Rash, No Lesions, No Jaundice, No Bruising, No Other Objective Vitals Vital Signs Date Time Temp Pulse Resp B/P (MAP) Pulse Ox O2 Delivery O2 Flow Rate FiO2 06/27/25 13:54 96 Nasal Cannula 3.0 06/27/25 13:54 32 06/27/25 13:30 98.4 61 20 129/74 (92) 98.4 Intake/Output Intake and Output 06/27/25 07:00 Intake Total 700 ml Balance 700 ml Intake Oral 700 ml # Voids 3 General Appearance: Alert, Oriented X3, moderate distress Lungs: Other (Bilateral rhonchi) Cardiovascular: Other (Irregularly irregular tachycardic heart rate 140) Abdomen: Normal bowel sounds, Soft, No tenderness Extremities: No edema Medications Current Medications Medications Dose Ordered Sig/Mima Route Start Time Stop Time Status Last Admin Dose Admin Acetaminophen/ Hydrocodone Bitart 1 tab Q4HP PRN PO 06/22/25 23:30 06/27/25 00:57 1 TAB Ondansetron HCl 4 mg Q4HP PRN IV 06/22/25 23:30 Acetaminophen 650 mg Q6HR PO 06/23/25 00:00 06/27/25 12:41 650 MG Albuterol 2.5 mg Q4HWA NEB 06/23/25 06:00 06/26/25 22:38 2.5 MG Ipratropium [place] 0.5 mg Q4HWA [facility] 06/23/25 06:00 06/26/25 22:38 0.5 MG Ceftriaxone Sodium/Dextrose 50 ml @ 50 mls/hr DAILY IV 06/23/25 10:00 06/27/25 10:00 50 MLS/HR Enoxaparin Sodium 80 mg Q12HR SC 06/23/25 22:00 06/27/25 10:01 80 MG Metoprolol Tartrate 25 mg BID PO 06/23/25 22:00 06/27/25 10:01 25 MG Doxycycline Hyclate 100 ml @ 50 mls/hr Q12H IV 06/23/25 14:00 Cancel Doxycycline Monohydrate 100 mg BID PO 06/23/25 22:00 06/27/25 10:01 100 MG Amiodarone HCl 200 mg Q12HR PO 06/23/25 22:00 06/27/25 10:01 200 MG Atorvastatin Calcium 40 mg HS PO 06/24/25 22:00 06/26/25 21:41 40 MG Acetylcysteine 200 mg Q8HR NEB 06/24/25 14:00 06/26/25 18:58 200 MG Guaifenesin/ Dextromethorphan 10 ml Q4HP PRN PO 06/24/25 13:45 06/26/25 09:44 10 ML Lidocaine 1 patch DAILY TOP 06/25/25 10:00 06/27/25 10:01 1 PATCH Laboratory Results Laboratory Tests 06/26/25 04:44 Urinalysis Test 06/22/25 19:45 Urine Color Light-yellow (Yellow) Urine Clarity Clear (Clear) Urine pH 5.5 (5.0-9.0) Urine Specific [place] 1.012 (1.001-1.035) Urine Protein Negative (Negative) Urine Ketones Trace (Negative) Urine Blood Negative /uL (Negative) Urine Nitrite Negative (Negative) Urine Bilirubin Negative (Negative) Urine Urobilinogen Normal mg/dL (Negative) Urine Leukocyte Esterase Negative /uL (Negative) Urine RBC 1 /hpf (0 - 4) Urine Microscopic WBC 1 /HPF (0-5) Urine Squamous Epithelial Cells Few /hpf (<5) Urine Bacteria None seen /hpf (None Seen) Urine Mucus Few (None Seen) Urine Glucose Normal mg/dL (Normal) Microbiology Microbiology Date/Time Source Procedure Growth Status 06/23/25 03:58 Nose MRSA Screen - Final Complete Assessment/Plan Assessment/Plan Acute hypoxic respiratory failure Atrial fibrillation with rapid ventricular response Possible congestive heart failure Possible underlying pneumonia Hypertension Old CVA Plan EKG Cardiology consult Troponin Echocardiogram Give metoprolol 25 mg twice a day Lovenox Get the home medications Called the but no answer IV antibiotics Rocephin and Zithromax Oxygen as needed Med neb treatments as needed Not stable for transfer 06/24/25: Cough: Robitussin, Mucomyst, Back pain: Lidocaine patch Antibiotics Lovenox Metoprolol Replace K+ Rocephin and Doxy Not stable for transfer 06/25/25: Continue IV antibiotics O2 Med Nebs Monitor closely Not stable for transfer 06/26/2025: The patient is improving Continue the IV antibiotics Continue treatment Oxygen and med neb treatments as needed Incentive spirometry Not stable for transfer 06/27/2025: Continue the current management with IV antibiotics Rocephin and doxycycline Med neb treatments Oxygen P.o. amiodarone Discharge planning for tomorrow Not stable for transfer today Plan discussed with: Patient My Orders Orders - NANCY CRISTOBAL MD Procedure Category Date Status Time * Wound Consult CONS 06/27/25 Transmitted * Dietary Consult CONS 06/27/25 Transmitted 09:33 Date of Service: Jun 27, 2025 Billing Provider: NANCY CRISTOBAL MD Common Visit Codes: [id number] INP/OBS CARE(HIGH) NANCY CRISTOBAL MD Jun 27, 2025 16:31
--- NOTE | 2025-06-27 20:04 | DVHPN2 ---
Progress Note - Dictate Date Seen: Jun 27, 2025 Medical Necessity Reason Pt with a Central, PICC or Fol: No Subjective Patient was seen and evaluated in follow up. Patient is on 3 LPM NC. Patient reports her cough has subsided. Patient reports feeling better daily. Telemetry reviewed. vital signs Vital Sign Date Time Temp Pulse Resp B/P (MAP) Pulse Ox O2 Delivery O2 Flow Rate FiO2 06/27/25 13:54 96 Nasal Cannula 3.0 06/27/25 13:54 32 06/27/25 10:01 64 159/76 06/27/25 09:30 97.2 18 97.2 Total Intake and Output 06/26/25 06/26/25 06/27/25 15:00 23:00 07:00 Intake Total 200 ml 500 ml Balance 200 ml 500 ml medications Current Medications Medications Dose Ordered Sig/Mima Route Start Time Stop Time Status Last Admin Dose Admin Acetaminophen/ Hydrocodone Bitart 1 tab Q4HP PRN PO 06/22/25 23:30 06/27/25 00:57 1 TAB Ondansetron HCl 4 mg Q4HP PRN IV 06/22/25 23:30 Acetaminophen 650 mg Q6HR PO 06/23/25 00:00 06/27/25 12:41 650 MG Albuterol 2.5 mg Q4HWA [facility] 06/23/25 06:00 06/26/25 22:38 2.5 MG Ipratropium [place] 0.5 mg Q4HWA [facility] 06/23/25 06:00 06/26/25 22:38 0.5 MG Ceftriaxone Sodium/Dextrose 50 ml @ 50 mls/hr DAILY IV 06/23/25 10:00 06/27/25 10:00 50 MLS/HR Enoxaparin Sodium 80 mg Q12HR [facility] 06/23/25 22:00 06/27/25 10:01 80 MG Metoprolol Tartrate 25 mg BID PO 06/23/25 22:00 06/27/25 10:01 25 MG Doxycycline Hyclate 100 ml @ 50 mls/hr Q12H IV 06/23/25 14:00 Cancel Doxycycline Monohydrate 100 mg BID PO 06/23/25 22:00 06/27/25 10:01 100 MG Amiodarone HCl 200 mg Q12HR PO 06/23/25 22:00 06/27/25 10:01 200 MG Atorvastatin Calcium 40 mg HS PO 06/24/25 22:00 06/26/25 21:41 40 MG Acetylcysteine 200 mg Q8HR NEB 06/24/25 14:00 06/26/25 18:58 200 MG Guaifenesin/ Dextromethorphan 10 ml Q4HP PRN PO 06/24/25 13:45 06/26/25 09:44 10 ML Lidocaine 1 patch DAILY TOP 06/25/25 10:00 06/27/25 10:01 1 PATCH objective GENERAL: Alert and oriented x 3. No acute distress. EYES: PERRL, EOMI. Anicteric. HENT: Moist mucous membranes. LUNGS: Clear to auscultation bilaterally. CARDIOVASCULAR: Irregular rate and rhythm. ABDOMEN: Soft, nontender and nondistended. EXTREMITIES: No edema. NEUROLOGIC: No focal neurological deficits. Right upper extremity strength 4/5, left upper extremity strength 5/5, speech defect because of history of stroke, no sensory deficits. SKIN: Warm, dry. laboratory and microbiology Laboratory Tests 06/26/25 04:44 Test 06/26/25 04:44 Range/Units Serum Glucose 85 74-106 mg/dL Problem List Sepsis with pneumonia. Acute hypoxic respiratory failure secondary to above. Paroxysmal atrial fibrillation with RVR, now NSR (new onset). H/o CVA with dysarthria. Hypertensive heart disease. Dyslipidemia. Assessment/Plan Continued all current supportive medical care. [place] for pain management. Amiodarone. Lipitor, Metoprolol. IV antibiotics as ordered. DVT prophylactics. Additional plan as per the hospital course. Plan discussed with: Patient JOHN PAUL FIERRO MD Jun 27, 2025 14:31
[2025-06-28 01:00] VITALS: BP 131/78; PULSE 60; RESP 20; TEMP 98; O2SAT 95
[2025-06-28 05:00] VITALS: BP 144/90; PULSE 66; RESP 20; TEMP 98.4; O2SAT 95
[2025-06-28 08:00] VITALS: PULSE 68; O2SAT 93
[2025-06-28 09:25] VITALS: BP 144/89; PULSE 66; RESP 16; TEMP 97.8; O2SAT 90
--- NOTE | 2025-06-28 10:37 | DVHDS2 ---
Discharge Summary Date of Admission Jun 22, 2025 at 23:25 Date of Discharge: Jun 28, 2025 Labs/Diagnostic Data: Laboratory Results Test 06/26/25 04:44 06/24/25 05:13 06/23/25 13:00 06/23/25 08:31 White Blood Count 11.2 10^3/uL (4.4-10.8) Red Blood Count 4.73 10^6/uL (4.0-5.20) Hemoglobin 14.2 g/dL (12.2-16.2) Hematocrit 41.9 % (36.0-46.0) Mean Corpuscular Volume 88.6 fL (80.0-100.0) Mean Corpuscular Hemoglobin 30.0 pg (28.0-32.0) Mean Corpuscular Hemoglobin Concent 33.8 g/dL (32.0-36.0) Red Cell Distribution Width 13.4 % (11.8-14.3) Platelet Count 233 10^3/uL (140-450) Mean Platelet Volume 8.4 fL (6.9-10.8) Neutrophils (%) (Auto) 52.2 % (37.0-80.0) Lymphocytes (%) (Auto) 39.0 % (10.0-50.0) Monocytes (%) (Auto) 5.5 % (0.0-12.0) Eosinophils (%) (Auto) 2.5 % (0.0-7.0) Basophils (%) (Auto) 0.8 % (0.0-2.0) Neutrophils # (Auto) 5.8 10 ^3/uL (1.6-8.6) Lymphocytes # (Auto) 4.3 10 ^3/uL (0.4-5.4) Monocytes # (Auto) 0.6 10 ^3/uL (0-1.3) Eosinophils # (Auto) 0.3 10 ^3/uL (0-0.8) Basophils # (Auto) 0.1 10 ^3/uL (0-0.2) Nucleated Red Blood Cells 0.3 % Sodium Level 144 mmol/L (136-145) Potassium Level 3.7 mmol/L (3.5-5.1) Chloride Level 110 mmol/L (98-107) Carbon Dioxide Level 24 mmol/L (20-31) Anion Gap 10 (5-15) Blood Urea Nitrogen 14 mg/dL (9-23) Creatinine 0.71 mg/dL (0.550-1.02) Glomerular Filtration Rate Calc 88 mL/min (>90) BUN/Creatinine Ratio 19.7 (10.0-20.0) Serum Glucose 85 mg/dL (74-106) Calcium Level 8.8 mg/dL (8.7-10.4) Magnesium Level 2.3 mg/dL (1.6-2.6) Total Bilirubin 0.6 mg/dL (0.2-1.0) Aspartate Amino Transferase (AST) 21 U/L (13-40) Alanine Aminotransferase (ALT) 19 U/L (7-40) Alkaline Phosphatase 142 U/L (46-116) Total Protein 6.7 g/dL (5.7-8.2) Albumin 4.0 g/dL (3.2-4.8) Triglycerides Level 308 mg/dL (< 150) Cholesterol Level 201 mg/dL (< 200) LDL Cholesterol 152 mg/dL (< 100) HDL Cholesterol 26 mg/dL (40-59) Thyroid Stimulating Hormone (TSH) 5.32 uIU/mL (0.55-4.78) Lactic Acid Level 1.5 mmol/L (0.4-2.0) Troponin I High Sensitivity 3 ng/L (</=34) B-Type Natriuretic Peptide 91.84 pg/mL (0-100) Test 06/23/25 03:58 06/22/25 19:45 Influenza Type A Antigen Negative (Negative) Influenza Type B Antigen Negative (Negative) SARS-CoV-2 Antigen (Rapid) Negative (NEGATIVE) Urine Color Light-yellow (Yellow) Urine Clarity Clear (Clear) Urine pH 5.5 (5.0-9.0) Urine Specific [place] 1.012 (1.001-1.035) Urine Protein Negative (Negative) Urine Ketones Trace (Negative) Urine Blood Negative /uL (Negative) Urine Nitrite Negative (Negative) Urine Bilirubin Negative (Negative) Urine Urobilinogen Normal mg/dL (Negative) Urine Leukocyte Esterase Negative /uL (Negative) Urine RBC 1 /hpf (0 - 4) Urine Microscopic WBC 1 /HPF (0-5) Urine Squamous Epithelial Cells Few /hpf (<5) Urine Bacteria None seen /hpf (None Seen) Urine Mucus Few (None Seen) Urine Glucose Normal mg/dL (Normal) Other Laboratory Tests 06/26/25 04:44 Brief Hx & Hospital Course: Final diagnoses: Acute hypoxic respiratory failure Atrial fibrillation with rapid ventricular response Congestive heart failure with preserved ejection fraction, acute on chronic Pneumonia due to Gram-negative/Gram-positive bacteria Hypertension Old CVA Sepsis due to pneumonia 74-year-old was admitted for acute respiratory failure and atrial fibrillation with rapid ventricular response and sepsis She was given IV antibiotics and oxygen med neb treatments She then went into atrial fibrillation with rapid ventricular response, she was given IV amiodarone and then she was switched to p.o. Currently she is getting antibiotics with Rocephin and doxycycline Today she says she feels better but she is still having difficulty breathing and cough She is also complaining of back pain She is improving slowly however she is still symptomatic with cough and congestion Heart rate is controlled now The patient is stable for transfer Transfer to [facility] once a bed is available for continuity of care Condition at Discharge: Stable Final Diagnosis/Problems List Acute hypoxic respiratory failure Atrial fibrillation with rapid ventricular response Congestive heart failure with preserved ejection fraction, acute on chronic Pneumonia due to Gram-negative/Gram-positive bacteria Hypertension Old CVA Sepsis due to pneumonia Discharge Disposition: Acute Care Facility SNF Discharge Will this Physician continue t: No Discharge Instruct/Medications Scheduled Amlodipine Besylate (Norvasc Tablet), 2.5 TAB PO DAILY, (Reported) Diazepam (Valium), 2 TAB PO BID Scheduled PRN Hydrocodone-Acetaminophen ([place] 10/325MG), 10-325 MG PO BIDP PRN, (Reported) Ibuprofen (Ibuprofen), 600 MG PO Q8HPRN PRN Discharge Statement: "Patient was advised to return to the ER or call 911 if any headaches, dizziness, shortness of breath, chest pain, abdominal pain, bleeding, fevers, or worsening of medical condition. Patient was counseled about treatment plan, medications, possible side effects, patientverbalized understanding. All questions were answered to the best of my ability. This discharge took greater then 30 minutes in planning, reviewing documentation, counseling the patient, and discussing with other team members." ASSESSMENT ASSESSMENT Assessment Date of Service: Jun 28, 2025 Billing Provider: NANCY CRISTOBAL MD Common Visit Codes: 50736-EZV/OBS DISCH DAY >30min NANCY CRISTOBAL MD Jun 28, 2025 10:37
[2025-06-28 12:30] VITALS: BP 117/72; PULSE 62; RESP 18; TEMP 97.7; O2SAT 93
--- NOTE | 2025-06-28 15:46 | DVH ---
CHEST RADIOGRAPH Indication: pneumonia Technique: Single frontal view of the chest was obtained COMPARISON: XY CHEST XRAY 1 VIEW on DOS: 06/23/25, XY CHEST PORTABLE on DOS: 06/22/25, XY CHEST PORTABLE on DOS: 12/09/24, XR CHEST 1 VIEW on DOS: 02/13/24, XR CHEST 2 VIEWS on DOS: 11/13/20 FINDINGS: Lines and Tubes: None Lungs: Increased interstital prominence. This may represent pulmonary vascular congestion and/or viral pneumonia. Pleura: No effusion.No pneumothorax. Cardiomediastinal contours: Cardiac valve replacement. Cardiomegaly. Bones: Unremarkable IMPRESSION: Increased pulmonary vascular congestion and/or viral pneumonia.
[2025-06-28 16:30] VITALS: BP 154/80; PULSE 70; RESP 18; TEMP 97.5; O2SAT 91
--- NOTE | 2025-06-28 23:08 | DVHPN2 ---
Progress Note - Dictate Date Seen: Jun 28, 2025 Medical Necessity Reason Pt with a Central, PICC or Fol: No Subjective Patient was seen and evaluated in follow up. Patient is on 3 LPM NC. No overnight events. Patient is being arranged for transfer to [place]. Telemetry reviewed. vital signs Vital Sign Date Time Temp Pulse Resp B/P (MAP) Pulse Ox O2 Delivery O2 Flow Rate FiO2 06/28/25 20:00 Nasal Cannula* 3 32 06/28/25 16:30 97.5 70 18 154/80 (104) 91 97.5 Total Intake and Output 06/27/25 06/27/25 06/28/25 15:00 23:00 07:00 Intake Total 50 ml 600 ml 350 ml Output Total 0 ml Balance 50 ml 600 ml 350 ml medications Current Medications Medications Dose Ordered Sig/Mima Route Start Time Stop Time Status Last Admin Dose Admin Doxycycline Hyclate 100 ml @ 50 mls/hr Q12H IV 06/23/25 14:00 Cancel objective GENERAL: Alert and oriented x 3. No acute distress. EYES: PERRL, EOMI. Anicteric. HENT: Moist mucous membranes. LUNGS: Clear to auscultation bilaterally. CARDIOVASCULAR: Irregular rate and rhythm. ABDOMEN: Soft, nontender and nondistended. EXTREMITIES: No edema. NEUROLOGIC: No focal neurological deficits. Right upper extremity strength 4/5, left upper extremity strength 5/5, speech defect because of history of stroke, no sensory deficits. SKIN: Warm, dry. laboratory and microbiology Laboratory Tests 06/26/25 04:44 Test 06/26/25 04:44 Range/Units Serum Glucose 85 74-106 mg/dL Problem List Sepsis with pneumonia. Acute hypoxic respiratory failure secondary to above. Paroxysmal atrial fibrillation with RVR, now NSR (new onset). H/o CVA with dysarthria. Hypertensive heart disease. Dyslipidemia. Assessment/Plan Continued all current supportive medical care. [place] for pain management. Amiodarone. Lipitor, Metoprolol. IV antibiotics as ordered. DVT prophylactics. Additional plan as per the hospital course. A total of 25 minutes was spent reviewing the patient record, examining the patient, making a diagnostic and therapeutic plan, discussing this plan with medical personnel, following up on diagnostic studies and following the patient for clinical stability excluding any and all procedures. At least 50% of this time was spent in direct, [id number] contact. Dietary Evaluation Review Comments: Nutrition Recommendation: 1) Ensure High Protein 240ml TID 2) Monitor PO intake, lab values, weight trend, and I/O Expected Outcomes/Goals: Intake to meet >75% estimated needs FU 3-5 days Plan discussed with: Patient JOHN PAUL FIERRO MD Jun 28, 2025 23:08
== END 2025-06-28 20:30 | disposition short-term general hospital (02) | DRG 871 ==
LOC: EDBD 14:49 → ER 14:49 → EDUNIT# 14:49 → OVERFLOW 23:25 → WEST WING 06-23 03:00 → TELE-WESTW 06-23 10:48
PROVIDERS: ADMIT Internal Medicine Geriatric Medicine; ATTEND Internal Medicine Geriatric Medicine
DX: A41.59 Other Gram-negative sepsis (principal); I50.33 Acute on chronic diastolic (congestive) heart failure; J15.69 Pneumonia due to other Gram-negative bacteria; J96.01 Acute respiratory failure with hypoxia; J15.9 Unspecified bacterial pneumonia; I11.0 Hypertensive heart disease with heart failure; R65.20 Severe sepsis without septic shock; E66.01 Morbid (severe) obesity due to excess calories; I35.0 Nonrheumatic aortic (valve) stenosis; Z20.822 Contact with and (suspected) exposure to COVID-19; Z68.32 Body mass index [BMI] 32.0-32.9, adult; I48.0 Paroxysmal atrial fibrillation; E87.6 Hypokalemia; E78.5 Hyperlipidemia, unspecified; G89.29 Other chronic pain; J98.4 Other disorders of lung; Z88.2 Allergy status to sulfonamides; Z90.710 Acquired absence of both cervix and uterus; Z86.73 Personal history of transient ischemic attack (TIA), and cerebral infarction without residual deficits; Z83.3 Family history of diabetes mellitus; Z82.49 Family history of ischemic heart disease and other diseases of the circulatory system; Z90.49 Acquired absence of other specified parts of digestive tract; Z88.8 Allergy status to other drugs, medicaments and biological substances
CPT/HCPCS: 36415; 71045; 80048; 80053; 80061; 81001; 83605; 83735; 83880; 84443; 84484; 85025; 87081; 87426; 87804; 93005; 93306; 94640; 99291; 99292; G0378; J3480